=== PATIENT | female | born 1950 | race Caucasian/White ===

== ENCOUNTER 2016-10-17 16:44 | Observation (INO) | payer MEDICARE, OTHER ==
[~2016-10-17] VITALS: Ht 149.9 cm; Wt 63.6 kg
[~2016-10-17 16:44] MED LIST: ACET500C5 PO; ALBU8.5H3 INH; ASPI-535; AZIT250T94 PO; BACTDS PO; BENA20TA48 PO; D-ME473S18 PO; HUM100VI14 SC; HYDR-3720 PO; LANS30CA47 PO; MECL25TA2 PO; METF1000 PO; OMEP20CA16 PO; ONDA4TAB8 PO; PANT40TA3 PO; SIMV20TA PO
[2016-10-17] MEDS ORDERED: NITROGLYCERIN 2% 1 GM OINT PKT TD STA (16:48)
[2016-10-17 16:58] VITALS: Ht 149.9 cm; Wt 63.6 kg
[2016-10-17] MEDS ORDERED: NITROGLYCERIN (SL) 0.4 MG TAB SL PRN ×2 (17:00→18:30)
[2016-10-17 17:19] LABS: HEMOGLOBIN 12.3 g/dl (12.0-16.0); INR 1.04; MEAN CORPUSCULAR HEMOGLOBIN 26.5 pg (29.0-33.0); MEAN CORPUSCULAR VOLUME 77.9 fl (82.0-101.0); MEAN PLATELET VOLUME 9.9 fl (7.4-10.4); PARTIAL THROMBOPLASTIN TIME 27.7 Sec (25.0-35.0); PLATELET COUNT 179 10^3/UL (140-440); PROTIME 13.6 Sec (12.2-14.2); PT RATIO 1.1; RED BLOOD COUNT 4.63 10^6/ul (4.20-5.40); RED CELL DISTRIBUTION WIDTH 15.8 % (11.5-14.5)
[2016-10-17 17:25] LABS: CONDITION 1; LH ANALYZER COMMENTS 1
--- NOTE | 2016-10-17 17:30 | RADRPT ---
PROCEDURE: XR Chest. CLINICAL INDICATION: Chest pain TECHNIQUE: Single frontal view of the chest was obtained. COMPARISON: 07/26/2016 FINDINGS: The heart is within normal limits. The thoracic aorta is calcified. There are mild ill-defined patchy nodular opacities in the right upper lobe with prominence of the r ight hilum. There is no pleural effusion or pneumothorax. RPTAT: AA IMPRESSION: Decreased right upper lobe and right perihilar infiltrate with residual patchy nodular opacities and enlargement of the right hilum. Further evaluation with a CT chest with contrast is recommended. Calcified aorta consistent with atherosclerotic disease. .Ehsan Jansen MD, MD Date Time Electronically viewed and signed by .Ehsan Jansen MD, on 10/17/2016 17:30 .S/
[2016-10-17 17:33] LABS: CHLORIDE 102 mmol/L (97-110); POTASSIUM 3.7 mmol/L (3.5-5.1); SODIUM 143 mmol/L (135-144)
[2016-10-17 17:36] LABS: ANION GAP 15 (8-16); BLOOD UREA NITROGEN 13 mg/dl (7-20); CARBON DIOXIDE 30 mmol/L (21-31); CREATININE 0.59 mg/dl (0.44-1.00); GLUCOSE 98 mg/dl (70-220)
[2016-10-17 17:37] LABS: CALCIUM 9.1 mg/dl (8.4-10.2)
[2016-10-17 17:41] LABS: CREATINE KINASE 58 IU/L (23-200)
[2016-10-17] MEDS ORDERED: GLYB5TAB3 PO (17:42)
[2016-10-17] MEDS ORDERED: METO50TA16 PO (17:43)
[2016-10-17] MEDS ORDERED: LOSA50TA6 PO (17:43)
[2016-10-17] MEDS ORDERED: ASPI-664 PO (17:45)
[2016-10-17 17:47] LABS: CK-MB 0.56 ng/ml (0.0-2.4)
[2016-10-17 17:55] LABS: TROPONIN-I < 0.012 ng/ml (0.00-0.12)
[2016-10-17 17:56] LABS: TROPONIN-I < 0.012 ng/ml (0.00-0.12)
[2016-10-17] MEDS ORDERED: NACL 0.9% 3 ML SYG IV SCH (18:30)
[2016-10-17] MEDS ORDERED: hydrALAzine 20 MG INJ IV PRN (18:30)
[2016-10-17] MEDS ORDERED: LORAZEPAM 2 MG INJ IV PRN (18:30)
[2016-10-17] MEDS ORDERED: MAGNESIUM HYDROXIDE 30ML CUP PO PRN (18:30)
[2016-10-17] MEDS ORDERED: morphine 2 MG INJ IV PRN (18:30)
[2016-10-17] MEDS ORDERED: ONDANSETRON 4 MG INJ IV PRN ×2 (18:30)
[2016-10-17] MEDS ORDERED: ALBUTEROL/IPRATROPIUM (NEB) 3 ML AMP HHN PRN (18:30)
[2016-10-17] MEDS ORDERED: DOCUSATE SODIUM 100 MG CAP PO PRN (18:30)
[2016-10-17] MEDS ORDERED: NA PHOSPHATE/BIPHOS 133 ML ENEMA PR PRN (18:30)
[2016-10-17] MEDS ORDERED: HYDROCODONE/APAP (5/325) TAB PO PRN (18:30)
[2016-10-17] MEDS ORDERED: ACETAMINOPHEN 325 MG TAB PO PRN (18:30)
[2016-10-17 18:42] LABS: BASOPHIL # 0.1 10^3/ul (0.0-0.1); EOSINOPHILS # 1.2 10^3/ul (0.0-0.5); LYMPHOCYTES # 3.4 10^3/ul (0.8-2.9); MONOCYTE # 0.4 10^3/ul (0.3-0.9); NEUTROPHIL # 5.8 10^3/ul (1.6-7.5)
--- NOTE | 2016-10-17 19:00 | ERD ---
ER Documentation Chief Complaint Date/Time DATE: 10/17/16 TIME: 18:58 Chief Complaint Chest pain HPI Patient is a 58-year-old female with hypertension and diabetes who presents with chest pain. She was brought in by ambulance. 1 hour prior she felt dizzy and could not walk and was having left-sided chest pain. The chest pain radiated across her chest to the right side. She said the pain was constant. She still feels the pain although it is better after aspirin and nitroglycerin that was given by the paramedics. Upon review of old medical record she does have multiple visits to the ER for various complaints. ROS All systems reviewed and are negative except as per history of present illness. Medications Home Meds Reported Medications Aspirin* (Aspirin* EC) 81 Mg Tablet.dr, 81 MG PO DAILY, TAB 10/17/16 Losartan Potassium* (Losartan Potassium*) 50 Mg Tablet, 50 MG PO DAILY, TAB 10/17/16 Metoprolol Succinate* (Toprol XL*) 50 Mg Tab.er.24h, 50 MG PO DAILY, #30 TAB 10/17/16 Glyburide* (Glyburide*) 5 Mg Tablet, 5 MG PO WITH BREAKFAST DINNE, #60 TAB 10/17/16 Insulin Human Isophan/Regular (Novolin 70/30) 100 Units/Ml Susp, 45 UNIT SC BID , EA 25 UNITS QAM AND 20 UNITS QPM 08/15/15 Omeprazole* (Omeprazole*) 20 Mg Capsule.dr, 20 MG PO DAILY, CAP 10/16/14 Metformin Hcl* (Metformin Hcl*) 1,000 Mg Tablet, 1000 MG PO BID WITH MEALS, TAB 10/16/14 Discontinued Reported Medications Simvastatin* (Zocor*) 20 Mg Tablet, 20 MG PO QHS, #30 TAB 08/15/15 Benazepril Hcl* (Benazepril Hcl*) 20 Mg Tablet, 20 MG PO DAILY, TAB 08/15/15 Aspirin Ec (Aspir 81) 81 Mg Tablet.dr, 81 MG DAILY 05/11/10 Discontinued Scripts Ondansetron Hcl* (Zofran*) 4 Mg Tablet, 4 MG PO Q8H Y for NAUSEA AND/OR VOMITING , #12 TAB Prov:ADRIANA STEELE DO 07/26/16 Azithromycin* (Zithromax*) 250 Mg Tablet, 250 MG PO .FRIDA DIRECTED, #6 TAB TAKE 500 MG (2 TABS) THE FIRST DAY THEN 250 MG (1 TAB) DAYS 2-5 Prov:ADRIANA STEELE DO 07/26/16 Ondansetron Hcl* (Zofran*) 4 Mg Tablet, 4 MG PO Q8H Y for NAUSEA AND/OR VOMITING , #12 TAB Prov:IVETTEADRIANA DO 06/22/16 Sulfamethoxazole-Trimethoprim* (Bactrim* DS) 800-160 Mg Tab, 1 TAB PO BID for 14 Days, TAB Prov:IVETTEADRIANA DO 06/22/16 Azithromycin* (Zithromax*) 250 Mg Tablet, 250 MG PO .ZPACK DIRECTED, #6 TAB TAKE 500 MG (2 TABS) THE FIRST DAY THEN 250 MG (1 TAB) DAYS 2-5 Prov:BHAVIK RICE MD 04/28/16 Dextromethorphan Hb-Promethazine Hcl (Promethazine DM Syrup) 473 Ml Syrup, 5 ML PO Q6H Y for COUGH, #4 OZ Prov:BHAVIK RICE MD 04/28/16 Acetaminophen* (Tylophen*) 500 Mg Capsule, 1 CAP PO Q6H Y for PAIN AND OR ELEVATED TEMP, #16 CAP Prov:BHAVIK RICE MD 04/28/16 Pantoprazole* (Protonix*) 40 Mg Tablet., 40 MG PO DAILY, #20 TAB Prov:BIRD JOHNSON MD 03/05/16 Hydrocodone Bit-Acetaminophen* (Shelburn*) 7.5-325 Tablet, 1 TAB PO Q4H Y for PAIN , #14 TAB Prov:KATIE CARRILLO DO 03/01/16 Meclizine Hcl* (Antivert*) 25 Mg Tablet, 25 MG PO Q6H Y for DIZZINESS, #20 TAB Prov:KATIE CARRILLO DO 03/01/16 Albuterol Sulfate* (Proair HFA*) 8.5 Gm Hfa.aer.ad, 2 PUFF INH Q4, #1 INHALER Prov:BLAKE SUERO PA-C 01/29/16 Lansoprazole* (Prevacid*) 30 Mg Capsule., 30 MG PO DAILY, #20 Prov:KISHORE XIONG MD 10/06/15 Allergies Allergies: Coded Allergies: morphine (Verified Allergy, Unknown, 10/17/16) n/v codeine (Verified Adverse Reaction, Mild, vomiting, 10/17/16) PMhx/Soc History of Surgery: Yes (C-SECTIONX2, RIGHT SHOULDER) Anesthesia Reaction: No Hx Neurological Disorder: No Hx Respiratory Disorders: No Hx Cardiac Disorders: Yes (HTN) Hx Psychiatric Problems: No Hx Miscellaneous Medical Probl: Yes (DM) Hx Alcohol Use: No Hx Substance Use: No Hx Tobacco Use: No Smoking Status: Never smoker FmHx Family History: No coronary disease Physical Exam Vitals Vital Signs Date Time Temp Pulse Resp B/P Pulse Ox O2 Delivery O2 Flow Rate FiO2 10/17/16 17:05 Nasal Cannula 2 10/17/16 17:05 98.1 70 16 173/71 98 Nasal Cannula 2.0 10/17/16 16:58 98.1 70 18 173/71 Physical Exam Const: Anxious Head: Atraumatic Eyes: Normal Conjunctiva ENT: Normal External Ears, Nose and Mouth. Neck: Full range of motion..~ No meningismus. Resp: Clear to auscultation bilaterally Cardio: Regular rate and rhythm, no murmurs Abd: Soft, non tender, non distended. Normal bowel sounds Skin: No petechiae or rashes Back: No midline or flank tenderness Ext: No cyanosis, or edema Neur: Awake and alert Psych: Normal Mood and Affect Result Diagram: 10/17/16 1650 10/17/16 1650 Results 24 hrs Laboratory Tests Test 10/17/16 16:50 Activated Partial Thromboplast Time 27.7Sec Anion Gap 15 Basophils # 0.110^3/ul Basophils % 1.0% Blood Morphology Comment Blood Urea Nitrogen 13mg/dl Calcium Level 9.1mg/dl Carbon Dioxide Level 30mmol/L Chloride Level 102mmol/L Creatine Kinase 58IU/L Creatine Kinase Index 1.0 Creatinine 0.59mg/dl Creatinine Kinase MB (Mass) 0.56ng/ml Eosinophils # 1.210^3/ul Eosinophils % 11.0% Glucose Level 98mg/dl Hematocrit 36.0% Hemoglobin 12.3g/dl INR International Normalized Ratio 1.04 Lymphocytes # 3.410^3/ul Lymphocytes % 31.0% Mean Corpuscular Hemoglobin 26.5pg Mean Corpuscular Hemoglobin Concent 34.0g/dl Mean Corpuscular Volume 77.9fl Mean Platelet Volume 9.9fl Monocytes # 0.410^3/ul Monocytes % 4.0% Neutrophils # 5.810^3/ul Neutrophils % 53.0% Nucleated Red Blood Cells # 10^3/ul Nucleated Red Blood Cells % /100WBC Platelet Count 73538^3/UL Potassium Level 3.7mmol/L Prothrombin Time 13.6Sec Prothrombin Time Ratio 1.1 Red Blood Count 4.6310^6/ul Red Cell Distribution Width 15.8% Sodium Level 143mmol/L Troponin I < 0.012ng/ml White Blood Count 11.010^3/ul Current Medications Medications (Trade) Dose Ordered Sig/Cuca Route PRN Reason Start Time Stop Time Status Last Admin Dose Admin Nitroglycerin (Nitroglycerin 2% Oint) 1 inch ONCE STAT TD 10/17/16 16:48 10/17/16 16:50 DC 10/17/16 17:17 Nitroglycerin (Nitroglycerin (Sl Tab) 0.4 Mg) 1 tab Q5M UP TO 3 DOSES PRN SL CHEST PAIN 10/17/16 17:00 Ondansetron HCl (Zofran Inj) 4 mg ER BRIDGE PRN IV NAUSEA AND/OR VOMITING 10/17/16 18:30 10/18/16 18:29 Acetaminophen (Tylenol Tab) 650 mg ER BRIDGE PRN PO MILD PAIN/FEVER 10/17/16 18:30 10/18/16 18:29 IV Flush (NS 3 ml) 3 ml PER PROTOCOL IV 10/17/16 18:30 UNV Ondansetron HCl (Zofran Inj) 4 mg Q6H PRN IV NAUSEA AND/OR VOMITING 10/17/16 18:30 UNV Acetaminophen (Tylenol Tab) 650 mg Q6H PRN PO PAIN LEVEL 1-3 OR FEVER 10/17/16 18:30 UNV Acetaminophen/ Hydrocodone Bitart (Shelburn (5/325)) 1 tab Q6H PRN PO MODERATE PAIN LEVEL 4-6 10/17/16 18:30 UNV Morphine Sulfate (morphine) 2 mg Q4H PRN IV SEVERE PAIN LEVEL 7-10 10/17/16 18:30 UNV Docusate Sodium (Colace) 100 mg Q12H PRN PO CONSTIPATION 10/17/16 18:30 UNV Magnesium Hydroxide (Milk Of Mag) 30 ml DAILY PRN PO CONSTIPATION 10/17/16 18:30 UNV Sodium Biphosphate/ Sodium Phosphate (Fleet Enema) 133 ml DAILY PRN [place] CONSTIPATION 10/17/16 18:30 UNV Pantoprazole (Protonix Iv) 40 mg DAILY@06 IV 10/18/16 06:00 UNV Heparin Sodium (Porcine) 5000 unit 5,000 unit Q12 SC 10/17/16 21:00 UNV Sodium Chloride (1/2 NS) 1,000 ml @ 75 mls/hr [id number] IV 10/17/16 18:21 UNV Lorazepam (Ativan) 0.5 mg Q6H PRN IV ANXIETY 10/17/16 18:30 UNV Albuterol/ Ipratropium (Duoneb) 3 ml Q4H RESP THERAPY PRN HHN SHORTNESS OF BREATH 10/17/16 18:30 UNV Hydralazine HCl (Apresoline) 10 mg Q6H PRN IV ELEVATED BLOOD PRESSURE 10/17/16 18:30 UNV Clonidine (Catapres) 0.1 mg Q6H PRN PO ELEVATED BLOOD PRESSURE 10/17/16 18:30 UNV Nitroglycerin (Nitroglycerin (Sl Tab) 0.4 Mg) 1 tab Q5M PRN SL ANGINA 10/17/16 18:30 UNV Aspirin (Ecotrin) 325 mg DAILY PO 10/18/16 09:00 UNV Insulin Aspart (Novolog Insulin Pen) NOVOLOG *MODERATE* ALGORI... Q4 SC 10/17/16 21:00 UNV Miscellaneous Information (* Miscellaneous Pharmacy Order) HYPOGLYCEMIA PROTOCOL w... ONCE ONCE XX 10/17/16 18:30 10/17/16 18:31 UNV Miscellaneous Information (* Miscellaneous Pharmacy Order) Discontinue Glyburide, Glipizide,... ONCE ONCE XX 10/17/16 18:30 10/17/16 18:31 UNV Miscellaneous Information (* Miscellaneous Pharmacy Order) Discontinue all previ... ONCE ONCE XX 10/17/16 18:30 10/17/16 18:31 UNV Losartan Potassium (Cozaar) 50 mg DAILY PO 10/18/16 09:00 UNV Metoprolol Succinate (Toprol Xl) 50 mg DAILY PO 10/18/16 09:00 UNV Procedures/MDM EKG #1 read by me: Rate/Rhythm: Regular rate and rhythm at a rate of 70 Intervals: Normal Impression: No evidence of ischemia or arrhythmia EKG #2 is pending at this time. PROCEDURE: XR Chest. CLINICAL INDICATION: Chest pain TECHNIQUE: Single frontal view of the chest was obtained. COMPARISON: 07/26/2016 FINDINGS: The heart is within normal limits. The thoracic aorta is calcified. There are mild ill-defined patchy nodular opacities in the right upper lobe with prominence of the right hilum. There is no pleural effusion or pneumothorax. RPTAT: AA IMPRESSION: Decreased right upper lobe and right perihilar infiltrate with residual patchy nodular opacities and enlargement of the right hilum. Further evaluation with a CT chest with contrast is recommended. Calcified aorta consistent with atherosclerotic disease. .Ehsan Jansen MD, MD Date Time Electronically viewed and signed by .Ehsan Jansen MD, MD on 10/17/2016 17: 30 Patient is a 66-year-old female with hypertension and diabetes who presents with chest pain. Given her age and cardiac risk factors I am concerned about potential acute coronary syndrome. At this point I doubt pneumonia, pneumothorax, pulmonary embolism, or aortic dissection. The patient will need admission for cardiac workup. I spoke with Dr. Hudson who will admit the patient to a telemetry bed. Departure Diagnosis: Primary Impression: Chest pain Chest pain type: unspecified Qualified Code: R07.9 - Chest pain, unspecified type Condition: YSOI Espinoza MD Oct 17, 2016 19:00
[2016-10-17] MEDS ORDERED: GLUCOSE GEL 15 GRAM TUBE PO PRN ×2 (19:30)
[2016-10-17] MEDS ORDERED: GLUCAGON 1 MG INJ IM PRN (19:30)
[2016-10-17] MEDS ORDERED: GLUCOSE GEL 15 GRAM TUBE BUCCAL PRN (19:30)
[2016-10-17] MEDS ORDERED: DEXTROSE 50% 50 ML SYRINGE IV PRN ×2 (19:30)
[2016-10-17] MEDS ORDERED: LEVOFLOXACIN 750MG/D5W (PMX) 150 ML IVPB SCH (19:30)
[2016-10-17] MEDS: SOD CHLORIDE 0.45% 1,000 ML IV SCH (19:44)
[2016-10-17] MEDS ORDERED: IOHEXOL 300MG/ML 150 ML BTL ONE (21:00)
[2016-10-17] MEDS ORDERED: SOD CHLORIDE 0.9% 100 ML ONE (21:00)
[2016-10-17] MEDS: INSULIN ASPART [NOVOLOG] 3 ML PEN SC SCH (21:00)
[2016-10-17] MEDS: ACETAMINOPHEN 325 MG TAB PO PRN (21:25)
[2016-10-17] MEDS: HEPARIN 5,000 UNIT/0.5 ML SYG SC SCH (21:27)
--- NOTE | 2016-10-17 21:29 | RADRPT ---
PROCEDURE: CT Chest with contrast. CLINICAL INDICATION: Shortness of breath, abnormal chest x-ray TECHNIQUE: A CT scan of the chest with contrast was performed. Coronal and sagittal reformatted im ages were obtained from the axial source images. 100 cc Omnipaque 300 were administered during exami nation without complication. CTDIvol: 11.95 mGy. Exam DLP: 409.68 mGy-cm. COMPARISON: Chest x-ray dated 10/17/2016. FINDINGS: There is a 1.0 cm partially calcified left thyroid lesion. There are also hypodense lesions in the right thyroid lobe measuring up to 0.7 cm. The trachea and mainstem bronchi are patent. The heart i s not enlarged. There is no pericardial effusion. There are numerous nodular opacities throughout the right upper lobe, with increased confluence in t he perihilar region. There is also a 2.6 x 2.0 cm right hilar lymph node. Several prominent right paratracheal lymph nodes measure up to 11 0 cm short axis. Mild atelectatic changes are noted in the medial right lower lobe, adjacent to the thoracic spine os teophytes. The left lung is clear. No pleural effusion or pneumothorax is identified. There is a 1.1 cm left renal cyst. There is no suspicious osseous lesion. IMPRESSION: 1. Numerous nodular opacities throughout the right upper lobe, with increased confluence in the per ihilar region. This is nonspecific but could represent an infectious or neoplastic process. 2. Right hilar and right paratracheal lymphadenopathy, also nonspecific. RPTAT: HTAR .Sb Mulligan MD, MD Date Time Electronically viewed and signed by .Sb Mulligan MD, on 10/17/2016 21:28 .R/
[2016-10-17 21:38] LABS: CREATINE KINASE 49 IU/L (23-200)
[2016-10-17 21:48] LABS: CK-MB 0.39 ng/ml (0.0-2.4)
[2016-10-17 21:55] LABS: TROPONIN-I < 0.012 ng/ml (0.00-0.12)
[2016-10-17 22:36] LABS: ADD UMIC YES; URINE BILIRUBIN (Dip) NEGATIVE (NEGATIVE); URINE BLOOD (Dip) NEGATIVE (NEGATIVE); URINE COLOR LT. YELLOW (YELLOW); URINE GLUCOSE (Dip) NEGATIVE (NEGATIVE); URINE KETONES (Dip) NEGATIVE (NEGATIVE); URINE LEUKOCYTE ESTERASE (Dip) TRACE (NEGATIVE); URINE NITRITE (Dip) NEGATIVE (NEGATIVE); URINE TOTAL PROTEIN (Dip) NEGATIVE (NEGATIVE); URINE UROBILINOGEN (Dip) 0.2 E.U./dL (0.1-1.0)
[2016-10-17 22:43] LABS: BACTERIA,URINE FEW; SQUAMOUS EPITHELIAL CELL,UR RARE; URINE RBCS 0-2 /HPF (0)
[2016-10-18] VITALS (10 sets, daily range): BP systolic 122–192; BP diastolic 60–88; PULSE 62–69; RESP 15–20; TEMP 97.9
[2016-10-18] MEDS: INSULIN ASPART [NOVOLOG] 3 ML PEN SC SCH ×5 (00:44→17:30)
[2016-10-18 01:02] LABS: CREATINE KINASE 48 IU/L (23-200)
[2016-10-18 01:11] LABS: CK-MB 0.41 ng/ml (0.0-2.4)
[2016-10-18 01:17] LABS: TROPONIN-I < 0.012 ng/ml (0.00-0.12)
[2016-10-18] MEDS: ACETAMINOPHEN 325 MG TAB PO PRN (04:30)
[2016-10-18] MEDS ORDERED: PANTOPRAZOLE 40 MG INJ IV SCH (06:00)
--- NOTE | 2016-10-18 06:46 | HP ---
DATE OF ADMISSION: 10/17/2016 IDENTIFICATION: This is a 66-year-old female. CHIEF COMPLAINT: Chest pain. HISTORY OF PRESENT ILLNESS: A 66-year-old female with past medical history of type 2 diabetes, hype rtension, high cholesterol, who is presenting with chest pain symptoms that began for 1 day. She al so had some headache symptoms and dizziness symptoms, but no loss of consciousness. Had some nausea symptoms as well, but no vomiting. She has been taking her medicines regularly at home, but became concerned and called EMS. Chest pain did radiate to her right side as well, it was constant in mora ure. In the ambulance, she did get aspirin and nitroglycerin, which helped relieve her symptoms as well. When she came in, she also was found with elevated blood pressure, systolic in the 170s and s he was given blood pressure medicines in the ER. PAST MEDICAL HISTORY: As stated above. ALLERGIES: 1. CODEINE. 2. MORPHINE. HOME MEDICATION: 1. Losartan 50 mg daily. 2. Toprol-XL 50 mg daily. 3. Aspirin 81 mg daily. 4. Omeprazole 20 mg daily. 5. Glyburide 5 mg at breakfast and dinner. 6. Novolin 70/30 insulin 45 units b.i.d. and 25 units in the morning and 20 units at night. 7. Metformin 1000 mg b.i.d. PAST SURGICAL HISTORY: She had x2 in the past. She has had right shoulder surgery in the past and a tubal ligation in the past. SOCIAL HISTORY: Negative for smoking, drinking, or IV drug abuse. FAMILY HISTORY: Mother had diabetes. PHYSICAL EXAMINATION VITAL SIGNS: Today, her vital signs were T-max 98.1, pulse 70, respirations 16 to 18, blood pressur e 173/71, saturating at 98% on 2 liters nasal cannula. GENERAL: The patient is lying in bed, answering questions, in no acute distress. HEENT: Pupils equal, round, react to light. Extraocular muscles intact. NECK: Supple, no thyromegaly. LUNGS: Clear to auscultation bilaterally. CARDIOVASCULAR: S1, S2 heard. No rubs or gallops. ABDOMEN: Soft, nontender, nondistended. Normal bowel sounds. No rebound or guarding. MUSCULOSKELETAL: No lower extremity edema bilaterally. NEUROLOGIC: No focal deficits. LABORATORIES: WBC 11.0, hemoglobin 12.3, hematocrit 36.0, platelets 139. The basic metabolic panel is normal. Troponin is negative x2. Coags are normal. Chest x-ray shows decreased right upper lo be and right perihilar infiltrate with residual patchy nodular opacities, enlargement of the right h ilum, recommending CT scan with contrast for further evaluation. ASSESSMENT AND PLAN: This is a 66-year-old female coming in with chest pain symptoms and dizziness with signs of hypertensive urgency and abnormal chest x-rays. 1. Chest pain, rule out for acute coronary syndrome. Admit her to telemetry floor, put her on aspi rin, morphine, oxygen, and nitrates. Trend her troponins, continue her home blood pressure medicine s for now. Check a 2D echocardiogram as well. 2. Hypertensive urgency, improved. Continue hydralazine IV p.r.n. and clonidine p.r.n. 3. Type 2 diabetes, check A1c and put her on sliding scale insulin for now. 4. High cholesterol. Check a lipid panel. 5. Essential hypertension. Again, see #2. We will continue her blood pressure medicines. 6. Abnormal chest x-ray. We will get a CT chest with contrast and put her on IV antibiotics for no w. No fevers. 7. GI prophylaxis. She will be on PPI. 8. DVT prophylaxis. She will be on heparin, get a PT consult. Dictated By: KYE BAL/DAINA Conf#: [id number] DID#: [id number]
[2016-10-18] MEDS: SOD CHLORIDE 0.45% 1,000 ML IV SCH (07:41)
[2016-10-18 08:20] LABS: CHOL/HDL RATIO 4.4 RATIO; CK-MB 0.29 ng/ml (0.0-2.4)
[2016-10-18 08:28] LABS: CREATINE KINASE 35 IU/L (23-200); TROPONIN-I < 0.012 ng/ml (0.00-0.12)
[2016-10-18 08:39] LABS: THYROID STIMULATING HORMONE 3.51 MIU/L (0.465-4.680)
[2016-10-18] MEDS ORDERED: LOSARTAN 50 MG TAB PO SCH (09:00)
[2016-10-18] MEDS ORDERED: ASPIRIN (EC) 325 MG TAB PO SCH (09:00)
[2016-10-18] MEDS ORDERED: METOPROLOL (XL) 50 MG TAB PO SCH (09:00)
[2016-10-18] MEDS: HEPARIN 5,000 UNIT/0.5 ML SYG SC SCH (09:04)
[2016-10-18 09:09] LABS: BASOPHILS % 0.3 % (0.0-2.0); EOSINOPHILS # 0.4 10^3/ul (0.0-0.5); EOSINOPHILS % 4.6 % (0.0-7.0); HEMATOCRIT 32.6 % (37.0-47.0); HEMOGLOBIN 10.9 g/dl (12.0-16.0); LYMPHOCYTES # 1.9 10^3/ul (0.8-2.9); LYMPHOCYTES % 24.5 % (15.0-51.0); MEAN CORPUSCULAR HEMOGLOBIN 26.7 pg (29.0-33.0); MEAN CORPUSCULAR HGB CONC 33.5 g/dl (32.0-37.0); MEAN CORPUSCULAR VOLUME 79.7 fl (82.0-101.0); MEAN PLATELET VOLUME 10.4 fl (7.4-10.4); MONOCYTE # 0.4 10^3/ul (0.3-0.9); MONOCYTES % 5.3 % (0.0-11.0); NEUTROPHIL # 5.2 10^3/ul (1.6-7.5); NEUTROPHILS % 65.3 % (39.0-77.0); PLATELET COUNT 147 10^3/UL (140-440); RED BLOOD COUNT 4.09 10^6/ul (4.20-5.40); RED CELL DISTRIBUTION WIDTH 15.5 % (11.5-14.5); UNCORRECTED WBC 7.9 10^3/ul (4.8-10.8); WHITE BLOOD COUNT 7.9 10^3/ul (4.8-10.8)
[2016-10-18 09:16] LABS: CONDITION 1; LH ANALYZER COMMENTS 1
[2016-10-18 09:20] LABS: POTASSIUM 4.5 mmol/L (3.5-5.1)
[2016-10-18 09:23] LABS: CREATININE 0.63 mg/dl (0.44-1.00)
[2016-10-18 09:24] LABS: CALCIUM 8.6 mg/dl (8.4-10.2); MAGNESIUM 1.8 mg/dl (1.7-2.5); PHOSPHORUS 3.8 mg/dl (2.5-4.9)
[2016-10-18] MEDS ORDERED: HUMULIN 70/30 3ML VIAL SC SCH (09:30)
[2016-10-18] MEDS ORDERED: INSULIN ASP PROT/ASPART (70/30) PEN SC SCH (12:00)
--- NOTE | 2016-10-18 12:38 | RADRPT ---
Echocardiogram Report Patient Name: BEREKET FOURNIER Gender: Female Date: 1950 Study Date: 18-Oct-2016 [employer] Consultant: Fredrick Banks [facility] Location: 5561 Ref. Physician: KYE PAT Quality: Good Procedures: Transthoracic echocardiogram with complete 2D, M-Mode, and doppler examination. Indications: Chest Pain. 2D/M Mode Doppler Measurement Value Normal Ranges Measurement Value Normal Ranges LVIDd 2D 4.9 3.5 - 5.6 cm AV Peak Noel 1.3 m/sec LVIDs 2D 3.1 2.1 - 4.1 cm AV Peak PG 6.7 mmHg LVPWd 2D 0.9 0.6 - 1.1 cm LVOT Peak Noel 0.7 m/sec IVSd 2D 0.8 0.6 - 1.1 cm LVOT Peak PG 1.9 mmHg AoR Diam 2D 2.6 2.0 - 3.7 cm MV E Peak Noel 0.9 m/sec EDV 2D 110.2 cm3 MV A Peak Noel 0.9 m/sec ESV 2D 31.2 cm3 MV E/A 1.0 LA Dimen 2D 3.3 2.3 - 4.0 cm MV Decel Time 242 msec MV Decel [place] 4 MV E/A 1.0 TR Peak Noel 2.6 m/sec TR Peak PG 28.0 mmHg RVSP 31.0 mmHg Findings Left Ventricle: Normal left ventricular systolic function. Normal left ventricular cavity size. Normal left ventricular wall thickness. Ejection fraction is visually estimated at 65 %. Tissue Doppler/Mitral Doppler indices are consistent with impaired relaxation (Stage I diastolic dysfunction). Right Ventricle: Normal right ventricular size. Normal right ventricular systolic function. Left Atrium: There is mild enlargement of left atrium. Right Atrium: The right atrium is normal in size. Mitral Valve: Mild mitral annular calcification. Trace mitral regurgitation. Aortic Valve: Normal appearance of the aortic valve. No significant aortic stenosis or insufficiency. Tricuspid Valve: Normal appearance of the tricuspid valve. Estimated peak PA systolic pressure 30 mmHg. There is mild tricuspid regurgitation. Pulmonic Valve: Normal pulmonic valve appearance. Pericardium: Normal pericardium with no significant pericardial effusion. Aorta: Normal aortic root. IVC: Normal size and normal respiratory collapse consistent with normal right atrial pressure. Conclusions Normal left ventricular systolic function. Normal left ventricular cavity size. Normal left ventricular wall thickness. Ejection fraction is visually estimated at 65 %. Tissue Doppler/Mitral Doppler indices are consistent with impaired relaxation (Stage I diastolic dysfunction). No significant valvular stenosis or regurgitation seen. Estimated peak PA systolic pressure 30 mmHg based on RA pressure of 3 mmHg. Electronically Signed By: Doug Sanz 18-Oct-2016 12:37:33 -0800 Patient Name: BEREKET FOURNIER Study Date: 18-Oct-[id number]
--- NOTE | 2016-10-18 14:02 | PDOCDIS ---
Discharge Instructions CONDITION Patient Condition: Stable HOME CARE INSTRUCTIONS: Special Diet: Cardiac diet ACTIVITY: Activity Restrictions: Slowly Increase Activity FOLLOW UP/APPOINTMENTS Appointments Please take your medicatins as prescribed, and see your doctor in the clinic in 1 week. KYE PAT Oct 18, 2016 14:02
[2016-10-18] MEDS ORDERED: LEVO750T25 PO (14:04)
--- NOTE | 2016-10-18 14:38 | DS ---
DATE OF ADMISSION: 10/17/2016 DATE OF DISCHARGE: 10/18/2016 This is a 66-year-old female originally admitted on 10/17/2014 being discharged on 10/18/2016. HOSPITAL COURSE: The patient came in with chest pain symptoms. She was admitted to telemetry floor . She ruled out for acute coronary syndrome. Troponins were negative x3. She had no significant E KG changes. Over the course of her hospital stay, chest pain symptoms improved. She was able to am bulate and tolerate a p.o. diet. She did work with physical therapy who recommended home health PT and front-wheel walker. In the meantime, her UA was found to be positive for UTI, specifically grea ter than 100,000 group B strep. Her white blood cell count did improve after getting antibiotics ann. Her hemoglobin A1c was found to be 10.8 and she was put on moderate insulin sliding scale re gimen. Her sugars did improve. She is again able to ambulate and tolerate a p.o. diet. She had no more chest pain symptoms. She will be discharged home today in improved condition. She will be sent with: 1. Levaquin 750 mg p.o. daily for 7 days. 2. She will continue aspirin 81 mg daily. 3. Glyburide 5 mg at breakfast and dinner. 4. Novolin 70/30 insulin 45 units b.i.d. 5. Losartan 50 mg b.i.d. 6. Metformin 1000 mg b.i.d. with meals. 7. Toprol-XL 50 mg daily. 8. Omeprazole 20 mg daily. She will need to follow up with primary care doctor in the clinic in the next 1 to 2 weeks. FINAL DIAGNOSES: 1. Chest pain, ruled out for acute coronary syndrome. 2. Essential hypertension. 3. Hypertensive urgency, improved. 4. High cholesterol. 5. 6. Type 2 diabetes with A1c of 10.8 now on p.o. and insulin medicines for diabetic control. 7. Positive group B strep urinary tract infection, now on antibiotic treatment. Time spent discharging patient 40 minutes. Dictated By: KYE BAL/DAINA Conf#: [id number] DID#: [id number]
== END 2016-10-18 20:29 | disposition home or self-care (01) ==
LOC: E/R 16:44 → MS4 18:06 → INTOOBSV 18:06
PROVIDERS: ADMIT Hospitalist; ATTEND Hospitalist
DX: R07.9 Chest pain, unspecified (principal); I16.0 Hypertensive urgency; E11.9 Type 2 diabetes mellitus without complications; E78.00 Pure hypercholesterolemia, unspecified; N39.0 Urinary tract infection, site not specified; B95.1 Streptococcus, group B, as the cause of diseases classified elsewhere; Z79.82 Long term (current) use of aspirin; Z79.4 Long term (current) use of insulin; Z88.5 Allergy status to narcotic agent; Z98.51 Tubal ligation status
CPT/HCPCS: 36415; 71010; 71260; 80048; 80061; 81001; 82550; 82553; 82962; 83036; 83735; 84100; 84439; 84443; 84484; 85025; 85610; 85730; 87086; 87400; 93005; 93306; 96365; 96366; 96372; 96375; 97162; 99285; C9113; G0378; J1644; J1815; J1817; J1956; J2405; Q9967; 81003

== ENCOUNTER 2016-12-02 01:41 | Inpatient (IN) | payer OTHER, MEDICARE ==
[2016-12-02] VITALS (13 sets, daily range): BP systolic 135–176; BP diastolic 63–79; PULSE 71–87; RESP 18–20; TEMP 98.3; Ht 134.6 cm; Wt 63.8 kg
[~2016-12-02] VITALS: Ht 134.6 cm; Wt 63.8 kg
[~2016-12-02 01:41] MED LIST changes: -ACET500C5 PO; -ALBU8.5H3 INH; -ASPI-535; +ASPI-664 PO; -AZIT250T94 PO; -BACTDS PO; -BENA20TA48 PO; -D-ME473S18 PO; +GLYB5TAB3 PO; -HYDR-3720 PO; -LANS30CA47 PO; +LEVO750T25 PO; +LOSA50TA6 PO; -MECL25TA2 PO; +METO50TA16 PO; -ONDA4TAB8 PO; -PANT40TA3 PO; -SIMV20TA PO
[2016-12-02] MEDS ORDERED: SOD CHLORIDE 0.9% 500 ML IV STA (01:48)
[2016-12-02] MEDS ORDERED: ONDANSETRON 4 MG INJ IV STA ×2 (01:48→03:25)
[2016-12-02 02:29] LABS: ADD SCAN DIFF NO
[2016-12-02 02:36] LABS: BASOPHILS % 0.3 % (0.0-2.0); EOSINOPHILS # 0.5 10^3/ul (0.0-0.5); EOSINOPHILS % 4.4 % (0.0-7.0); HEMATOCRIT 40.9 % (37.0-47.0); LYMPHOCYTES # 2.6 10^3/ul (0.8-2.9); MEAN CORPUSCULAR HEMOGLOBIN 26.2 pg (29.0-33.0); MEAN CORPUSCULAR HGB CONC 34.2 g/dl (32.0-37.0); MEAN CORPUSCULAR VOLUME 76.4 fl (82.0-101.0); MEAN PLATELET VOLUME 11.9 fl (7.4-10.4); MONOCYTE # 0.6 10^3/ul (0.3-0.9); NEUTROPHIL # 8.5 10^3/ul (1.6-7.5); PLATELET COUNT 222 10^3/UL (140-415); RED BLOOD COUNT 5.35 10^6/ul (4.20-5.40); RED CELL DISTRIBUTION WIDTH 13.8 % (11.5-14.5); WHITE BLOOD COUNT 12.3 10^3/ul (4.8-10.8)
[2016-12-02 02:49] LABS: INR 1.01; PARTIAL THROMBOPLASTIN TIME 26.4 Sec (25.0-35.0); PROTIME 13.3 Sec (12.2-14.2)
[2016-12-02 02:51] LABS: ALBUMIN 4.4 g/dl (3.3-4.9)
[2016-12-02 02:52] LABS: CHLORIDE 87 mmol/L (97-110); POTASSIUM 4.3 mmol/L (3.5-5.1); SODIUM 140 mmol/L (135-144)
[2016-12-02 02:54] LABS: ALBUMIN/GLOBULIN RATIO 1.12; ANION GAP 19 (8-16); ASPARTATE AMINO TRANSFERASE 43 IU/L (15-46); BILIRUBIN,INDIRECT 0.5 mg/dl (0-1.1); BILIRUBIN,TOTAL 0.5 mg/dl (0.2-1.3); CARBON DIOXIDE 38 mmol/L (21-31); CREATININE 0.68 mg/dl (0.44-1.00); TOTAL PROTEIN 8.3 g/dl (6.1-8.1)
[2016-12-02 02:55] LABS: ALANINE AMINOTRANSFERASE 39 IU/L (13-69); ALKALINE PHOSPHATASE 224 IU/L (42-121); BLOOD UREA NITROGEN 19 mg/dl (7-20); CALCIUM 10.3 mg/dl (8.4-10.2)
[2016-12-02 03:03] LABS: GLUCOSE 548 mg/dl (70-220)
[2016-12-02 03:06] LABS: TROPONIN-I < 0.012 ng/ml (0.00-0.12)
--- NOTE | 2016-12-02 03:07 | RADRPT ---
PROCEDURE: XR Chest. CLINICAL INDICATION: Abdominal pain. TECHNIQUE: Single frontal view of the chest was obtained COMPARISON: Plain film chest and CT chest examination dated 10/17/2016. FINDINGS: Heart size is mildly enlarged. Atherosclerotic calcifications in the thoracic aorta. Right mid derrick g patchy nodular air space disease again seen. This compatible with plain film and CT examinations dated 10/17/2016. There is no pleural effusion or pneumothorax. IMPRESSION: Patchy nodular right mid lung air space disease is again seen. RPTAT: [facility] Physician Shira Date Time Electronically viewed and signed by Physician Shira on 12/02/2016 03:07 RS/
--- NOTE | 2016-12-02 03:18 | RADRPT ---
PROCEDURE: CT Abdomen and Pelvis without contrast. CLINICAL INDICATION: Abdominal pain. TECHNIQUE: A CT scan of the abdomen and pelvis was performed without intravenous contrast. Ceron l and sagittal reformatted images were generated. Images were reviewed on a high-resolution PACS wor kstation. CTDIvol: 15.19 mGy. DLP: 801.16 mGy-cm. One or more of the following dose reduction techniques were used: - Automated exposure control. - Adjustment of the mA and/or kV according to patient size. - Use of iterative reconstruction technique. COMPARISON: 08/15/2015 FINDINGS: There are mild atelectatic changes in the medial right lower lobe, adjacent to the thoracic spine os teophytes. Evaluation of the abdominal and pelvic viscera is limited by the lack of oral and intravenous contra st. The liver is unremarkable. The gallbladder is normal in appearance. The common bile duct is not dila triston. The spleen is not enlarged. No pancreatic lesion is identified and there is no pancreatic ducta l dilatation. The adrenal glands are unremarkable. The kidneys are normal in size. There is no perinephric fat stranding. No hydronephrosis is seen. Th ere is a 5 mm nonobstructing stone in the left kidney. There is a 1.3 cm right renal cyst. There are a few mildly dilated duodenal and jejunal loops in the abdomen and pelvis, and a possible transition to relatively collapsed small bowel in the posterior abdominopelvic region. The small and large bowel are normal in caliber. There is no bowel wall thickening. The appendix is normal. The urinary bladder is unremarkable. The pelvic organs are within normal limits. No lymphadenopathy is identified. There is no ascites. No pneumoperitoneum is seen. There are mild a rterial calcifications. No suspicious osseous lesion is idenitified. IMPRESSION: 1. A few mildly dilated duodenal and jejunal loops in the abdomen and pelvis, with a possible trans ition to relatively collapsed small bowel in the posterior abdominopelvic region. This is nonspecif ic but suggestive of a partial or evolving small bowel obstruction. This could be further evaluated with a small bowel follow-through examination if clinically warranted. 2. Normal appendix. 3. No hydronephrosis. There is a nonobstructing 5 mm stone in the left kidney. 4. Mild atherosclerotic arterial calcifications. RPTAT: HTAR .Sb Mulligan MD, MD Date Time Electronically viewed and signed by .Sb Mulligan MD, MD on 12/02/2016 03:17 .R/
[2016-12-02] MEDS ORDERED: LORAZEPAM 2 MG INJ ONE (03:26)
[2016-12-02] MEDS ORDERED: LORAZEPAM 2 MG INJ IV ONE (03:30)
--- NOTE | 2016-12-02 04:07 | ERA ---
ER Documentation Chief Complaint Date/Time DATE: 12/02/16 TIME: 04:06 Chief Complaint AP w/ upper abd/epigastric distension x 1 hr, vomiting, had chilli @ 1900 HPI This is 58-year-old female with epigastric abdominal. Distention 2-year-old. Patient has vomiting 3-4 episodes of nonbilious nonbloody. He said happened after she had "chilly" for dinner abdominal pain is diffusely located but localized to the epigastric region with associated nausea and vomiting. Pain is mild to moderate in intensity. No other current complaints. ROS All systems reviewed and are negative except as per history of present illness. Medications Home Meds Active Scripts Levofloxacin* (Levaquin*) 750 Mg Tablet, 750 MG PO DAILY for 7 Days, TAB Prov:KYE PAT S. 10/18/16 Reported Medications Aspirin* (Aspirin* EC) 81 Mg Tablet.dr, 81 MG PO DAILY, TAB 10/17/16 Losartan Potassium* (Losartan Potassium*) 50 Mg Tablet, 50 MG PO DAILY, TAB 10/17/16 Metoprolol Succinate* (Toprol XL*) 50 Mg Tab.er.24h, 50 MG PO DAILY, #30 TAB 10/17/16 Glyburide* (Glyburide*) 5 Mg Tablet, 5 MG PO WITH BREAKFAST DINNE, #60 TAB 10/17/16 Insulin Human Isophan/Regular (Novolin 70/30) 100 Units/Ml Susp, 45 UNIT SC BID , EA 25 UNITS QAM AND 20 UNITS QPM 08/15/15 Omeprazole* (Omeprazole*) 20 Mg Capsule.dr, 20 MG PO DAILY, CAP 10/16/14 Metformin Hcl* (Metformin Hcl*) 1,000 Mg Tablet, 1000 MG PO BID WITH MEALS, TAB 10/16/14 Allergies Allergies: Coded Allergies: morphine (Verified Allergy, Unknown, 10/17/16) n/v codeine (Verified Adverse Reaction, Mild, vomiting, 10/17/16) PMhx/Soc History of Surgery: Yes (Right shoulder, x2 C-sections) Anesthesia Reaction: No Hx Neurological Disorder: No Hx Respiratory Disorders: No Hx Cardiac Disorders: Yes (HTN) Hx Psychiatric Problems: No Hx Miscellaneous Medical Probl: Yes (DM, htn, high cholesterol, chest pain, C section, tubal ligation) Hx Alcohol Use: No Hx Substance Use: No Hx Tobacco Use: No Smoking Status: Never smoker Physical Exam Vitals Vital Signs Date Time Temp Pulse Resp B/P Pulse Ox O2 Delivery O2 Flow Rate FiO2 12/02/16 02:13 98.3 78 16 175/74 95 Room Air 12/02/16 01:50 98.8 86 20 179/86 98 Physical Exam Const: [] Head: Atraumatic Eyes: Normal Conjunctiva ENT: Normal External Ears, Nose and Mouth. Neck: Full range of motion..~ No meningismus. Resp: Clear to auscultation bilaterally Cardio: Regular rate and rhythm, no murmurs Abd: Soft, non tender, non distended. Normal bowel sounds Skin: No petechiae or rashes Back: No midline or flank tenderness Ext: No cyanosis, or edema Neur: Awake and alert Psych: Normal Mood and Affect Result Diagram: 12/02/16 0200 12/02/16 0200 Results 24 hrs Laboratory Tests Test 12/02/16 02:00 White Blood Count 12.310^3/ul Red Blood Count 5.3510^6/ul Hemoglobin 14.0g/dl Hematocrit 40.9% Mean Corpuscular Volume 76.4fl Mean Corpuscular Hemoglobin 26.2pg Mean Corpuscular Hemoglobin Concent 34.2g/dl Red Cell Distribution Width 13.8% Platelet Count 50998^3/UL Mean Platelet Volume 11.9fl Neutrophils % 69.0% Lymphocytes % 21.0% Monocytes % 5.0% Eosinophils % 4.4% Basophils % 0.3% Nucleated Red Blood Cells % 0.0/100WBC Neutrophils # 8.510^3/ul Lymphocytes # 2.610^3/ul Monocytes # 0.610^3/ul Eosinophils # 0.510^3/ul Basophils # 0.010^3/ul Nucleated Red Blood Cells # 0.010^3/ul Prothrombin Time 13.3Sec Prothrombin Time Ratio 1.0 INR International Normalized Ratio 1.01 Activated Partial Thromboplast Time 26.4Sec Sodium Level 140mmol/L Potassium Level 4.3mmol/L Chloride Level 87mmol/L Carbon Dioxide Level 38mmol/L Anion Gap 19 Blood Urea Nitrogen 19mg/dl Creatinine 0.68mg/dl Glucose Level 548mg/dl Calcium Level 10.3mg/dl Total Bilirubin 0.5mg/dl Direct Bilirubin 0.00mg/dl Indirect Bilirubin 0.5mg/dl Aspartate Amino Transf (AST/SGOT) 43IU/L Alanine Aminotransferase (ALT/SGPT) 39IU/L Alkaline Phosphatase 224IU/L Troponin I < 0.012ng/ml Total Protein 8.3g/dl Albumin 4.4g/dl Globulin 3.90g/dl Albumin/Globulin Ratio 1.12 Lipase 1621U/L Current Medications Medications (Trade) Dose Ordered Sig/Cuca Route PRN Reason Start Time Stop Time Status Last Admin Dose Admin Sodium Chloride (NS) 500 ml @ 500 mls/hr Q1H STAT IV 12/02/16 01:48 12/02/16 02:47 DC 12/02/16 02:05 Ondansetron HCl (Zofran Inj) 4 mg ONCE STAT IV 12/02/16 01:48 12/02/16 01:50 DC 12/02/16 02:04 Lorazepam (Ativan) 2 mg STK-MED ONCE .ROUTE 12/02/16 03:26 12/02/16 03:27 DC Lorazepam (Ativan) 1 mg ONCE ONCE IV 12/02/16 03:30 12/02/16 03:43 DC 12/02/16 03:48 Ondansetron HCl (Zofran Inj) 4 mg ONCE STAT IV 12/02/16 03:25 12/02/16 03:43 DC 12/02/16 03:48 Procedures/MDM Medical decision making: This very pleasant but unfortunate patient has evidence of acute pancreatitis along with a developing small bowel obstruction versus ileus. Patient will be admitted to the hospitalist. Surgery on-call has had a consult placed in the chart. NG tube placed. Patient doing somewhat better with post NG tube and pain is resolved. Patient will be admitted to [facility]. EKG: Rate/Rhythm: Normal Sinus Rhythm QRS, ST, T-waves: No changes consistent w/ acute ischemia Impression: No evidence of ischemia or arrhythmia Chest X-ray 1V Interpreted by me: Soft Tissue: No acute abnormalities Bones: No acute abnormalities Mediastinum/Cardiac Silhouette/Lungs: [No acute abnormalities] Departure Diagnosis: Primary Impression: Acute pancreatitis Qualified Code: K85.90 - Acute pancreatitis, unspecified complication status, unspecified pancreatitis type Additional Impression: Small bowel obstruction Condition: Serious BRUCE SALAZAR Dec 02, 2016 04:07
[2016-12-02] MEDS ORDERED: INSULIN REGULAR, HUMAN 100 UNIT/1 ML 3ML VIAL SC ONE (04:30)
[2016-12-02] MEDS ORDERED: NACL 0.9% 3 ML SYG IV SCH (06:00)
[2016-12-02] MEDS ORDERED: ONDANSETRON 4 MG INJ IV PRN (06:00)
[2016-12-02] MEDS ORDERED: ACETAMINOPHEN 650 MG SUPP PR PRN (06:00)
[2016-12-02] MEDS: SOD CHLORIDE 0.9% 1,000 ML IV SCH ×3 (06:00→22:00)
[2016-12-02] MEDS: INSULIN GLARGINE [LANtus] 3 ML PEN SC SCH ×2 (06:28→08:00)
[2016-12-02] MEDS ORDERED: INSULIN ASPART [NOVOLOG] 3 ML PEN SC ONE (06:30)
[2016-12-02] MEDS ORDERED: GLUCAGON 1 MG INJ IM PRN (06:30)
[2016-12-02] MEDS ORDERED: GLUCOSE GEL 15 GRAM TUBE PO PRN ×2 (06:30)
[2016-12-02] MEDS ORDERED: DEXTROSE 50% 50 ML SYRINGE IV PRN ×2 (06:30)
[2016-12-02] MEDS ORDERED: GLUCOSE GEL 15 GRAM TUBE BUCCAL PRN (06:30)
--- NOTE | 2016-12-02 07:05 | HP ---
DATE OF ADMISSION: 12/02/2016 TIME SEEN: 5 a.m. CHIEF COMPLAINT: Abdominal pain, slight distention and vomiting. HISTORY OF PRESENT ILLNESS: The patient is a 66-year-old female with a history of hypertension, yuliana betes, dyslipidemia who presented to the Emergency Department with the above stated chief complaint. She said last night, she ate some chili which she thinks might have caused her symptoms. Abdomina l pain is associated with nonbilious, nonbloody vomiting. When she presented to the ER, blood pressure was 139/86, blood pressure in the ER has been documente d to be as high as 206/89. Laboratory values show a bicarbonate of 38, chloride 87, glucose of 548, alkaline phosphatase 224. WBC 12.3 and a lipase of 1600. CT abdomen and pelvis shows a finding that is nonspecific but suggestive of a partial or evolving sm all bowel obstruction. Also noted was a nonobstructing 5 mm stone in the left kidney. The patient received Zofran, IV fluids, Ativan and 8 units of regular insulin while she was in the ER. REVIEW OF SYSTEMS: A 12-point review of systems was performed and is negative except as mentioned i n HPI. PAST MEDICAL HISTORY: As per HPI. PAST SURGICAL HISTORY: Tubal ligation and and right shoulder surgery. SOCIAL HISTORY: Denied a history of tobacco, alcohol or illicit drug use. ALLERGIES: 1. CODEINE. 2. MORPHINE. HOME MEDICATIONS: 1. Losartan. 2. Metoprolol XL. 3. Aspirin. 4. Prilosec. 5. Glyburide. 6. Insulin. PHYSICAL EXAMINATION: VITALS: Blood pressure 151/66, heart rate 81, respiratory rate 16, temperature 98.3, oxygen saturat ion earlier was 95% on room air. GENERAL: No acute distress. She is Syriac speaking only and answering questions appropriately thr ough certified legal secretary specialist. HEENT: No obvious head deformity. Pupils reactive to light. Extraocular muscles intact. CARDIOVASCULAR: Slightly tachycardic with regular rhythm. LUNGS: Clear. ABDOMEN: Soft. There is mild tenderness to palpation mainly in the epigastric area. No guarding, n o rebound tenderness. EXTREMITIES: No edema. NEUROLOGIC: No focal deficits. LABORATORY DATA: Pertinent positives are as mentioned in the HPI. IMAGING: CT abdomen and pelvis without contrast. Results as mentioned in the HPI. Chest x-ray show s patchy nodular right mid lung airspace disease. IMPRESSION: 1. Acute pancreatitis. 2. Partial small bowel obstruction. 3. Abdominal pain/distention and vomiting, secondary to #1 and #2. 4. Diabetes with severe hyperglycemia. 5. Hypertensive urgency, blood pressure better controlled. 6. History of dyslipidemia. 7. Systemic inflammatory response syndrome (SIRS) as evidenced by leukocytosis and tachycardia, lik vee secondary to acute pancreatitis. PLAN: We will keep n.p.o. with IV fluid. We will provide pain medication and antiemetics as needed . Currently, she is awaiting surgical re-evaluation by Dr. Phan. She will be placed on insulin fo r better glycemic control. She will receive IV antihypertensives and we will adjust as needed. We will correct electrolytes as needed. Once she is no longer n.p.o., we will resume her home medicati ons. Further workup and management per clinical course. Dictated By: BRUCE TREVINO/DAINA Conf#: [id number] DID#: [id number]
[2016-12-02] MEDS: ALBUTEROL/IPRATROPIUM (NEB) 3 ML AMP HHN SCH ×3 (08:00→21:22)
[2016-12-02] MEDS: FAMOTIDINE 20 MG INJ IV SCH ×2 (09:48→22:03)
[2016-12-02] MEDS: INSULIN ASPART [NOVOLOG] 3 ML PEN SC SCH ×4 (09:58→22:04)
[2016-12-02] MEDS: hydrALAzine 20 MG INJ IV PRN (11:04)
[2016-12-02] MEDS: METOCLOPRAMIDE 10 MG INJ IV SCH (17:17)
[2016-12-02 17:54] LABS: ADD UMIC YES; URINE BILIRUBIN (Dip) NEGATIVE (NEGATIVE); URINE BLOOD (Dip) 1+ (NEGATIVE); URINE COLOR LT. YELLOW (YELLOW); URINE KETONES (Dip) NEGATIVE (NEGATIVE); URINE LEUKOCYTE ESTERASE (Dip) 3+ (NEGATIVE); URINE NITRITE (Dip) NEGATIVE (NEGATIVE); URINE TOTAL PROTEIN (Dip) 1+ (NEGATIVE); URINE UROBILINOGEN (Dip) 0.2 E.U./dL (0.1-1.0)
[2016-12-02] MEDS ORDERED: ACETAMINOPHEN 325 MG TAB PO PRN (18:00)
[2016-12-02 18:09] LABS: BACTERIA,URINE MODERATE
[2016-12-02] MEDS ORDERED: DOCUSATE SODIUM 100 MG CAP PO SCH (21:00)
[2016-12-03] VITALS (14 sets, daily range): BP systolic 123–185; BP diastolic 56–81; PULSE 81–90; RESP 17–20
[2016-12-03] MEDS: SOD CHLORIDE 0.9% 1,000 ML IV SCH ×5 (00:21→19:03)
[2016-12-03] MEDS: METOCLOPRAMIDE 10 MG INJ IV SCH ×4 (00:21→17:40)
[2016-12-03] MEDS: INSULIN ASPART [NOVOLOG] 3 ML PEN SC SCH ×6 (00:33→20:45)
[2016-12-03] MEDS: ALBUTEROL/IPRATROPIUM (NEB) 3 ML AMP HHN SCH ×4 (03:09→20:50)
[2016-12-03 07:33] LABS: ADD SCAN DIFF NO
[2016-12-03 07:42] LABS: BASOPHILS % 0.3 % (0.0-2.0); EOSINOPHILS # 0.3 10^3/ul (0.0-0.5); EOSINOPHILS % 3.2 % (0.0-7.0); HEMATOCRIT 36.2 % (37.0-47.0); HEMOGLOBIN 11.7 g/dl (12.0-16.0); LYMPHOCYTES # 2.9 10^3/ul (0.8-2.9); LYMPHOCYTES % 28.8 % (15.0-51.0); MEAN CORPUSCULAR HEMOGLOBIN 25.8 pg (29.0-33.0); MEAN CORPUSCULAR HGB CONC 32.3 g/dl (32.0-37.0); MEAN CORPUSCULAR VOLUME 79.7 fl (82.0-101.0); MEAN PLATELET VOLUME 12.6 fl (7.4-10.4); MONOCYTE # 0.5 10^3/ul (0.3-0.9); NEUTROPHIL # 6.2 10^3/ul (1.6-7.5); NEUTROPHILS % 62.5 % (39.0-77.0); PLATELET COUNT 160 10^3/UL (140-415); RED BLOOD COUNT 4.54 10^6/ul (4.20-5.40); RED CELL DISTRIBUTION WIDTH 14.6 % (11.5-14.5); WHITE BLOOD COUNT 9.9 10^3/ul (4.8-10.8)
[2016-12-03 08:03] LABS: ALBUMIN 3.5 g/dl (3.3-4.9)
[2016-12-03 08:06] LABS: BILIRUBIN,INDIRECT 0.5 mg/dl (0-1.1); BILIRUBIN,TOTAL 0.5 mg/dl (0.2-1.3); CREATININE 0.63 mg/dl (0.44-1.00); PHOSPHORUS 3.4 mg/dl (2.5-4.9)
[2016-12-03 08:07] LABS: CALCIUM 8.5 mg/dl (8.4-10.2)
[2016-12-03 08:34] LABS: THYROID STIMULATING HORMONE 1.36 MIU/L (0.465-4.680)
[2016-12-03] MEDS: INSULIN GLARGINE [LANtus] 3 ML PEN SC SCH (08:39)
[2016-12-03] MEDS: POLYETHYLENE GLYCOL 17 GM PACKET PO SCH (08:41)
[2016-12-03] MEDS: FAMOTIDINE 20 MG INJ IV SCH ×2 (08:41→19:57)
[2016-12-03] MEDS: DOCUSATE SODIUM 10 MG/ML (10ML CUP) NGT SCH ×2 (08:41→19:57)
--- NOTE | 2016-12-03 15:42 | PN ---
Date/Time of Note Date/Time of Note DATE: 12/03/16 TIME: 13:19 Assessment/Plan VTE Prophylaxis VTE Prophylaxis Intervention: SCD's Lines/Catheters IV Catheter Type (from Nrsg): Peripheral IV Urinary Cath still in place: No Assessment/Plan Assessment/Plan 1. Acute pancreatitis: resolved? 2. Partial small bowel obstruction 3. Abdominal pain/distention and vomiting, secondary to #1 and #2: improved 4. Uncontrolled DM 2 A1C 10.2: Control is still suboptimal. 5. Hypertensive urgency, blood pressure better controlled but still suboptimal 6. Dyslipidemia. 7. Systemic inflammatory response syndrome (SIRS) 2/2 #1 and #8: improved 8. UTI PLAN: * Remain NPO for now * SBFT, commence CLD if negative * Begin empiric abx / send urine for culture * Titrating BP and diabetic control is difficult while NPO, continue PRNs for now * Continue PRN pain control/ antiemetics/ antipyretics/ supportive care PROPHYLAXIS: Pepcid / scds Subjective 24 Hr Interval Summary Free Text/Dictation c/o hungry, wants something to eat, abd pain is improved but still present Exam/Review of Systems Vital Signs Vitals Vital Signs Date Time Temp Pulse Resp B/P Pulse Ox O2 Delivery O2 Flow Rate FiO2 12/03/16 13:10 81 12/03/16 08:21 18 92 21 12/03/16 07:48 98.3 147/63 12/02/16 09:00 Nasal Cannula 2.0 Intake and Output 12/02/16 12/02/16 12/03/16 14:59 22:59 06:59 Intake Total 530 ml 510 ml Output Total 950 ml 750 ml Balance -420 ml -240 ml Exam Constitutional: alert, frail, oriented, No distress Psych: anxiety Head: atraumatic, normocephalic Eyes: PERRL ENMT: No mucosa pink and moist (dry) Neck: supple Respiratory: clear to auscultation, normal air movement Cardiovascular: nl pulses, regular rate and rhythm Gastrointestinal: bowel sounds, non-tender, other (NGT in place, no further drainage), soft Extremities: No edema Neurological: nl mental status, nl speech Results Result Diagram: 12/03/16 0641 12/03/16 0647 Results 24 hrs Laboratory Tests Test 12/02/16 13:28 12/02/16 16:55 12/02/16 17:00 12/02/16 22:02 Bedside Glucose 87 138 203 Urine Color LT. YELLOW Urine Clarity TURBID Urine pH 7.[address] 1.010 Urine Ketones NEGATIVE Urine Nitrite NEGATIVE Urine Bilirubin NEGATIVE Urine Urobilinogen 0.2 E.U./dL Urine Leukocyte Esterase 3+ H Urine Microscopic RBC 5-10 Urine Microscopic WBC >200 Urine Epithelial Cells FEW Urine Bacteria MODERATE Urine Hemoglobin 1+ H Urine Glucose 0.25% H Urine Total Protein 1+ H Test 12/03/16 00:21 12/03/16 05:17 12/03/16 06:41 12/03/16 06:47 Bedside Glucose 201 158 White Blood Count 9.9 Red Blood Count 4.54 Hemoglobin 11.7 L Hematocrit 36.2 L Mean Corpuscular Volume 79.7 L Mean Corpuscular Hemoglobin 25.8 L Mean Corpuscular Hemoglobin Concent 32.3 Red Cell Distribution Width 14.6 H Platelet Count 160 # Mean Platelet Volume 12.6 H Neutrophils % 62.5 Lymphocytes % 28.8 Monocytes % 5.0 Eosinophils % 3.2 Basophils % 0.3 Nucleated Red Blood Cells % 0.0 Neutrophils # 6.2 Lymphocytes # 2.9 Monocytes # 0.5 Eosinophils # 0.3 Basophils # 0.0 Nucleated Red Blood Cells # 0.0 Hemoglobin A1c 10.5 H Amylase Level 57 Lipase 101 Thyroid Stimulating Hormone (TSH) 1.360 Sodium Level 141 Potassium Level 4.0 Chloride Level 108 # Carbon Dioxide Level 27 # Anion Gap 10 # Blood Urea Nitrogen 13 Creatinine 0.63 Glucose Level 204 Calcium Level 8.5 Phosphorus Level 3.4 Total Bilirubin 0.5 Direct Bilirubin 0.00 Indirect Bilirubin 0.5 Aspartate Amino Transf (AST/SGOT) 56 H Alanine Aminotransferase (ALT/SGPT) 33 Alkaline Phosphatase 121 Total Protein 7.0 # Albumin 3.5 Globulin 3.50 H Albumin/Globulin Ratio 1.00 Test 12/03/16 08:34 12/03/16 12:53 Bedside Glucose 178 166 Medications Medications Current Medications Sodium Chloride (NS) 1,000 ml @ 125 mls/hr Q8H IV Last administered on t 10:24; Admin Dose 125 MLS/HR; Start 12/02/16 at 06:00 Ondansetron HCl (Zofran Inj) 4 mg Q6H PRN IV NAUSEA AND/OR VOMITING; Start 12/02 at 06:00 Acetaminophen (Tylenol Supp) 650 mg Q6H PRN MO PAIN LEVEL 1-3 OR FEVER; Start 12/02/16 at 06:00 Famotidine (Pepcid Iv) 20 mg Q12 IV Last administered on 12/03/16 08:41; Admin Dose 20 MG; Start 12/02/16 at 09:00 Miscellaneous Information (* Miscellaneous Pharmacy Order) 1 ea PRN PRN XX WOUND CARE; Start 12/02/16 at 06:00 Insulin Aspart (Novolog Insulin Pen) NOVOLOG *MODERATE* ALGORI... Q4 SC Last administered on 12/03/16 08:38; Admin Dose 2 UNIT; Start 12/02/16 at 09:00 Hydralazine HCl (Apresoline) 10 mg Q4H PRN IV SBP > 160 Last administered on 11:04; Admin Dose 10 MG; Start 12/02/16 at 06:00 Miscellaneous Information 1 ea NOTE XX ; Start 12/02/16 at 06:30 Glucose (Glutose) 15 gm Q15M PRN PO DECREASED GLUCOSE; Start 12/02/16 at 06:30 Glucose (Glutose) 22.5 gm Q15M PRN PO DECREASED GLUCOSE; Start 12/02/16 at 06:30 Dextrose (D50w Syringe) 25 ml Q15M PRN IV DECREASED GLUCOSE; Start 12/02/16 at 06:30 Dextrose (D50w Syringe) 50 ml Q15M PRN IV DECREASED GLUCOSE; Start 12/02/16 at 06:30 Glucagon (Glucagen) 1 mg Q15M PRN IM DECREASED GLUCOSE; Start 12/02/16 at 06:30 Glucose (Glutose) 15 gm Q15M PRN BUCCAL DECREASED GLUCOSE; Start 12/02/16 at 06: 30 Insulin Glargine (Lantus) 10 unit DAILY@08 SC Last administered on 12/03/16 08: 39; Admin Dose 10 UNIT; Start 12/03/16 at 08:00 Metoclopramide HCl (Reglan) 10 mg Q6 IV Last administered on 12/03/16 06:49; Admin Dose 10 MG; Start 12/02/16 at 18:00; Stop 12/04/16 at 17:59 Polyethylene Glycol (Miralax) 17 gm DAILY PO Last administered on 12/03/16 08: 41; Admin Dose 17 GM; Start 12/03/16 at 09:00 Acetaminophen (Tylenol Tab) 650 mg Q6H PRN PO PAIN AND OR ELEVATED TEMP; Start 12/02/16 at 18:00 Docusate Sodium (Colace Liquid Cup) 100 mg BID NGT Last administered on 08:41; Admin Dose 100 MG; Start 12/03/16 at 09:00 SHANTAL MACKENZIE Dec 03, 2016 13:29
[2016-12-03] MEDS: CEFTRIAXONE 1 GM/50 ML (PMX) 50 ML IVPB SCH (15:52)
[2016-12-03] MEDS: hydrALAzine 20 MG INJ IV PRN (19:57)
[2016-12-04] VITALS (13 sets, daily range): BP systolic 147–182; BP diastolic 56–78; PULSE 82–103; RESP 18–20
[2016-12-04] MEDS: INSULIN ASPART [NOVOLOG] 3 ML PEN SC SCH ×5 (01:25→22:35)
[2016-12-04] MEDS: METOCLOPRAMIDE 10 MG INJ IV SCH ×3 (01:28→12:19)
[2016-12-04] MEDS: SOD CHLORIDE 0.9% 1,000 ML IV SCH ×3 (01:29→12:20)
[2016-12-04] MEDS: ALBUTEROL/IPRATROPIUM (NEB) 3 ML AMP HHN SCH ×4 (01:45→20:26)
[2016-12-04] MEDS: INSULIN GLARGINE [LANtus] 3 ML PEN SC SCH (08:25)
[2016-12-04 08:28] LABS: ADD SCAN DIFF NO
[2016-12-04 08:43] LABS: BASOPHILS % 0.4 % (0.0-2.0); EOSINOPHILS # 0.4 10^3/ul (0.0-0.5); EOSINOPHILS % 4.4 % (0.0-7.0); HEMATOCRIT 37.1 % (37.0-47.0); HEMOGLOBIN 12.1 g/dl (12.0-16.0); LYMPHOCYTES # 2.4 10^3/ul (0.8-2.9); LYMPHOCYTES % 25.2 % (15.0-51.0); MEAN CORPUSCULAR HEMOGLOBIN 26.1 pg (29.0-33.0); MEAN CORPUSCULAR HGB CONC 32.6 g/dl (32.0-37.0); MEAN CORPUSCULAR VOLUME 80.1 fl (82.0-101.0); MEAN PLATELET VOLUME 12.3 fl (7.4-10.4); MONOCYTE # 0.5 10^3/ul (0.3-0.9); MONOCYTES % 5.2 % (0.0-11.0); NEUTROPHILS % 64.5 % (39.0-77.0); PLATELET COUNT 176 10^3/UL (140-415); RED BLOOD COUNT 4.63 10^6/ul (4.20-5.40); RED CELL DISTRIBUTION WIDTH 14.2 % (11.5-14.5); WHITE BLOOD COUNT 9.4 10^3/ul (4.8-10.8)
[2016-12-04 08:55] LABS: CREATININE 0.58 mg/dl (0.44-1.00)
[2016-12-04 08:56] LABS: CALCIUM 8.6 mg/dl (8.4-10.2); MAGNESIUM 1.8 mg/dl (1.7-2.5)
[2016-12-04 09:01] LABS: IRON 40 ug/dl (35-150)
[2016-12-04] MEDS ORDERED: DIATR MEGLU/DIATRIZOATE SODIUM 120 ML BTL ONE ×2 (09:07)
[2016-12-04 09:12] LABS: TOTAL IRON BINDING CAPACITY 322 ug/dl (241-421)
[2016-12-04 10:11] LABS: AMYLASE 82 U/L (11-123)
[2016-12-04] MEDS: FAMOTIDINE 20 MG INJ IV SCH ×2 (10:36→21:53)
[2016-12-04] MEDS: hydrALAzine 20 MG INJ IV PRN (10:47)
[2016-12-04] MEDS: DOCUSATE SODIUM 10 MG/ML (10ML CUP) NGT SCH ×2 (10:54→21:00)
[2016-12-04] MEDS: POLYETHYLENE GLYCOL 17 GM PACKET PO SCH (10:54)
--- NOTE | 2016-12-04 11:51 | PN ---
Date/Time of Note Date/Time of Note DATE: 12/04/16 TIME: 11:49 Assessment/Plan VTE Prophylaxis VTE Prophylaxis Intervention: SCD's Lines/Catheters IV Catheter Type (from Nrsg): Peripheral IV Urinary Cath still in place: No Assessment/Plan Assessment/Plan 1. Acute pancreatitis: resolved? 2. Partial small bowel obstruction 3. Abdominal pain/distention and vomiting, secondary to #1 and #2: improved 4. Uncontrolled DM 2 A1C 10.2: Control is still suboptimal. 5. Hypertensive urgency, blood pressure better controlled but still suboptimal 6. Dyslipidemia. 7. Systemic inflammatory response syndrome (SIRS) 2/2 #1 and #8: improved 8. Gram negative jill UTI PLAN: * SBFT results still pending but patient has had multiple BMs, she's very hungry , I'm comfortable starting clears for now pending results of SBFT * Continua abx of UTO f/u final cultures * Start oral meds and SSI and titrate for improved control * Continue PRN pain control/ antiemetics/ antipyretics/ supportive care PROPHYLAXIS: Pepcid / scds Subjective 24 Hr Interval Summary Free Text/Dictation having multiple bowel movement Exam/Review of Systems Vital Signs Vitals Vital Signs Date Time Temp Pulse Resp B/P Pulse Ox O2 Delivery O2 Flow Rate FiO2 12/04/16 10:30 91 18 182/78 Room Air 12/04/16 08:07 93 21 12/04/16 07:48 99.5 12/02/16 09:00 2.0 Intake and Output 12/03/16 12/03/16 12/04/16 15:00 23:00 07:00 Intake Total 1000 ml 1150 ml 900 ml Output Total 100 ml 50 ml Balance 1000 ml 1050 ml 850 ml Exam Constitutional: alert, frail, oriented, No distress Psych: anxiety Head: atraumatic, normocephalic Eyes: PERRL ENMT: No mucosa pink and moist (dry) Neck: supple Respiratory: clear to auscultation, normal air movement Cardiovascular: nl pulses, regular rate and rhythm Gastrointestinal: bowel sounds, non-tender, other (NGT in place, no further drainage), soft Extremities: No edema Neurological: nl mental status, nl speech Results Result Diagram: 12/04/16 0715 12/04/16 0715 Results 24 hrs Laboratory Tests Test 12/03/16 12:53 4/4/17 17:32 12/03/16 20:33 12/04/16 01:18 Bedside Glucose 166 180 160 195 Test 12/04/16 05:38 12/04/16 07:15 12/04/16 07:30 12/04/16 07:41 Bedside Glucose 174 178 White Blood Count 9.4 Red Blood Count 4.63 Hemoglobin 12.1 Hematocrit 37.1 Mean Corpuscular Volume 80.1 L Mean Corpuscular Hemoglobin 26.1 L Mean Corpuscular Hemoglobin Concent 32.6 Red Cell Distribution Width 14.2 Platelet Count 176 Mean Platelet Volume 12.3 H Neutrophils % 64.5 Lymphocytes % 25.2 Monocytes % 5.2 Eosinophils % 4.4 Basophils % 0.4 Nucleated Red Blood Cells % 0.0 Neutrophils # 6.0 Lymphocytes # 2.4 Monocytes # 0.5 Eosinophils # 0.4 Basophils # 0.0 Nucleated Red Blood Cells # 0.0 Sodium Level 138 Potassium Level 4.0 Chloride Level 106 Carbon Dioxide Level 24 Anion Gap 12 Blood Urea Nitrogen 10 Creatinine 0.58 Glucose Level 185 Calcium Level 8.6 Magnesium Level 1.8 Iron Level 40 Total Iron Binding Capacity 322 Percent Iron Saturation 12 L Amylase Level 82 Lipase 73 Test 12/04/16 10:30 Bedside Glucose 227 H Medications Medications Current Medications Sodium Chloride (NS) 1,000 ml @ 125 mls/hr Q8H IV Last administered on 05:39; Admin Dose 125 MLS/HR; Start 12/02/16 at 06:00 Ondansetron HCl (Zofran Inj) 4 mg Q6H PRN IV NAUSEA AND/OR VOMITING; Start 12/02 at 06:00 Acetaminophen (Tylenol Supp) 650 mg Q6H PRN IN PAIN LEVEL 1-3 OR FEVER Last administered on 12/04/16 10:36; Admin Dose 650 MG; Start 12/02/16 at 06:00 Famotidine (Pepcid Iv) 20 mg Q12 IV Last administered on 12/04/16 10:36; Admin Dose 20 MG; Start 12/02/16 at 09:00 Miscellaneous Information (* Miscellaneous Pharmacy Order) 1 ea PRN PRN XX WOUND CARE; Start 12/02/16 at 06:00 Insulin Aspart (Novolog Insulin Pen) NOVOLOG *MODERATE* ALGORI... Q4 SC Last administered on 12/04/16 10:51; Admin Dose 6 UNIT; Start 12/02/16 at 09:00 Hydralazine HCl (Apresoline) 10 mg Q4H PRN IV SBP > 160 Last administered on 10:47; Admin Dose 10 MG; Start 12/02/16 at 06:00 Miscellaneous Information 1 ea NOTE XX ; Start 12/02/16 at 06:30 Glucose (Glutose) 15 gm Q15M PRN PO DECREASED GLUCOSE; Start 12/02/16 at 06:30 Glucose (Glutose) 22.5 gm Q15M PRN PO DECREASED GLUCOSE; Start 12/02/16 at 06:30 Dextrose (D50w Syringe) 25 ml Q15M PRN IV DECREASED GLUCOSE; Start 12/02/16 at 06:30 Dextrose (D50w Syringe) 50 ml Q15M PRN IV DECREASED GLUCOSE; Start 12/02/16 at 06:30 Glucagon (Glucagen) 1 mg Q15M PRN IM DECREASED GLUCOSE; Start 12/02/16 at 06:30 Glucose (Glutose) 15 gm Q15M PRN BUCCAL DECREASED GLUCOSE; Start 12/02/16 at 06: 30 Insulin Glargine (Lantus) 10 unit DAILY@08 SC Last administered on 12/04/16 08: 25; Admin Dose 10 UNIT; Start 12/03/16 at 08:00 Metoclopramide HCl (Reglan) 10 mg Q6 IV Last administered on 12/04/16 06:25; Admin Dose 10 MG; Start 12/02/16 at 18:00; Stop 12/04/16 at 17:59 Polyethylene Glycol (Miralax) 17 gm DAILY PO Last administered on 12/03/16 08: 41; Admin Dose 17 GM; Start 12/03/16 at 09:00 Acetaminophen (Tylenol Tab) 650 mg Q6H PRN PO PAIN AND OR ELEVATED TEMP Last administered on 12/03/16 20:30; Admin Dose 650 MG; Start 12/02/16 at 18:00 Docusate Sodium 100 mg 100 mg BID NGT Last administered on 12/03/16 19:57; Admin Dose 100 MG; Start 12/03/16 at 09:00 Ceftriaxone Sodium (Rocephin) 50 ml @ 100 mls/hr Q24H IVPB Last administered on 12/03/16t 15:52; Admin Dose 100 MLS/HR; Start 12/03/16 at 13:30 SHANTAL MACKENZIE Dec 04, 2016 11:51 SHANTAL MACKENZIE Dec 04, 2016 11:51
[2016-12-04] MEDS: LISINOPRIL 20 MG TAB PO SCH (12:21)
[2016-12-04] MEDS: METOPROLOL 25 MG TAB PO SCH ×2 (12:21→21:53)
--- NOTE | 2016-12-04 13:49 | RADRPT ---
PROCEDURE: Small bowel follow-through. CLINICAL INDICATION: Abdomen pain. TECHNIQUE: Water-soluble contrast was administered via the nasogastric tube and several spot and o verhead radiographs of the abdomen were obtained. COMPARISON: None. FINDINGS: On the preliminary radiograph, the nasogastric tube is coiled in the duodenum. This was retracted a pproximately 25 cm and an additional radiograph was obtained demonstrating the catheter tip in the d istal stomach. There is no other abnormality on the preliminary radiograph. There is no small bowel displacement or mass. The small bowel folds are normal. There is no evidence of obstruction. Transit time is normal with contrast in the colon at 30 minutes. IMPRESSION: 1. Nasogastric tube repositioned in the stomach. 2. Otherwise normal small bowel follow-through. RPTAT: QQ .Jonny Ellington MD, Date Time Electronically viewed and signed by .Jonny Ellington MD, on 12/04/2016 13:48 .R/
[2016-12-04] MEDS: CEFTRIAXONE 1 GM/50 ML (PMX) 50 ML IVPB SCH (13:55)
[2016-12-05] VITALS (9 sets, daily range): BP systolic 118–149; BP diastolic 59–72; PULSE 77–89; RESP 18–20
[2016-12-05] MEDS ORDERED: ACCU-CHEK XX SCH (02:00)
[2016-12-05] MEDS: ALBUTEROL/IPRATROPIUM (NEB) 3 ML AMP HHN SCH ×3 (02:09→13:42)
[2016-12-05] MEDS: SOD CHLORIDE 0.9% 1,000 ML IV SCH ×2 (04:42→18:02)
[2016-12-05 07:23] LABS: ADD SCAN DIFF NO
[2016-12-05 07:34] LABS: BASOPHILS % 0.3 % (0.0-2.0); EOSINOPHILS # 0.5 10^3/ul (0.0-0.5); EOSINOPHILS % 5.8 % (0.0-7.0); HEMATOCRIT 36.4 % (37.0-47.0); LYMPHOCYTES # 2.9 10^3/ul (0.8-2.9); LYMPHOCYTES % 36.7 % (15.0-51.0); MEAN CORPUSCULAR HEMOGLOBIN 26.3 pg (29.0-33.0); MEAN CORPUSCULAR VOLUME 79.8 fl (82.0-101.0); MEAN PLATELET VOLUME 11.7 fl (7.4-10.4); MONOCYTE # 0.4 10^3/ul (0.3-0.9); MONOCYTES % 4.7 % (0.0-11.0); NEUTROPHIL # 4.1 10^3/ul (1.6-7.5); NEUTROPHILS % 52.2 % (39.0-77.0); PLATELET COUNT 168 10^3/UL (140-415); RED BLOOD COUNT 4.56 10^6/ul (4.20-5.40); RED CELL DISTRIBUTION WIDTH 14.2 % (11.5-14.5); WHITE BLOOD COUNT 7.9 10^3/ul (4.8-10.8)
[2016-12-05 07:54] LABS: POTASSIUM 3.6 mmol/L (3.5-5.1)
[2016-12-05 07:56] LABS: CREATININE 0.53 mg/dl (0.44-1.00)
[2016-12-05 07:57] LABS: CALCIUM 8.6 mg/dl (8.4-10.2)
[2016-12-05] MEDS: INSULIN ASPART [NOVOLOG] 3 ML PEN SC SCH ×3 (08:24→17:54)
[2016-12-05] MEDS: DOCUSATE SODIUM 10 MG/ML (10ML CUP) NGT SCH (08:27)
[2016-12-05] MEDS: LISINOPRIL 20 MG TAB PO SCH (08:27)
[2016-12-05] MEDS: POLYETHYLENE GLYCOL 17 GM PACKET PO SCH (08:27)
[2016-12-05] MEDS: FAMOTIDINE 20 MG INJ IV SCH (08:27)
[2016-12-05] MEDS: METOPROLOL 25 MG TAB PO SCH (08:27)
[2016-12-05] MEDS: INSULIN GLARGINE [LANtus] 3 ML PEN SC SCH (08:37)
[2016-12-05] MEDS ORDERED: INSULIN ASP PROT/ASPART (70/30) PEN SC SCH (12:30)
[2016-12-05] MEDS ORDERED: ERTAPENEM SODIUM 1 GM in SOD CHLORIDE 0.9% 100 ML IVPB SCH (12:30)
--- NOTE | 2016-12-05 12:52 | PDOCDIS ---
Discharge Instructions DIAGNOSIS Discharge Diagnosis: Pancreatitis / SBO / UTI CONDITION Patient Condition: Stable HOME CARE INSTRUCTIONS: Diet Instructions: Reduced CalorieSpecial Diet: 1800 calorie ADA diet ACTIVITY: Activity Restrictions: Slowly Increase Activity Rest between Activity FOLLOW UP/APPOINTMENTS Appointments Followup with your primary doctor within the next 1-2 weeks. If you don't have one please let someone know, we can give you resources that may help you pick one. You may also call Dr Claude Barksdale's office. he's accepting new patients Name, Degree: Claude Barksdale MD Specialty: Internal Medicine Comments: Office Address: [address] [place] [address] [place] [id number] Office Office You may also call your insurance company to assign one to you. Review your medication list with your nurse before leaving and if you need new prescriptions please let your nurse know. I may have made changes to your home medications or given you new prescriptions , please let your primary doctor know as well. Stay compliant with your medications and report any side effects to your PCP or pharmacist. Return to the ER if you have any concerns and cannot reach your doctors or call your insurance company, they usually have a nurse that can help you. OTHER ORDERS: Other Orders: * Repeat urine culture in 1 week for test of sure * Remove PICC line upon completion of antibiotics if patient has one. SHANTAL MACKENZIE Dec 05, 2016 12:52
[2016-12-05] MEDS ORDERED: LANT3I SC (13:01)
[2016-12-05] MEDS ORDERED: POLY17PO6 PO (13:01)
[2016-12-05] MEDS ORDERED: METF1000 PO (13:01)
[2016-12-05] MEDS ORDERED: LOSA100T7 PO (13:01)
[2016-12-05] MEDS ORDERED: ASPI-664 PO (13:01)
[2016-12-05] MEDS ORDERED: NOVO3I SC (13:01)
[2016-12-05] MEDS ORDERED: METO50TA16 PO (13:01)
[2016-12-05] MEDS ORDERED: GLYB5TAB3 PO (13:01)
[2016-12-05] MEDS: metFORMIN 500 MG TAB PO SCH ×2 (13:28→17:54)
--- NOTE | 2016-12-05 14:31 | DS ---
DATE OF ADMISSION: 12/02/2016 DATE OF DISCHARGE: 12/05/2016 PRESENTING COMPLAINT: Abdominal pain, distention, and vomiting. ADMISSION DIAGNOSES: 1. Acute pancreatitis. 2. Partial small bowel obstruction. 3. Abdominal pain, distention, and vomiting secondary to #1 and #2. 4. Diabetes with associated hyperglycemia. 5. Hypertensive urgency. 6. History of dyslipidemia. 7. Systemic inflammatory response syndrome, likely secondary to acute pancreatitis. CONSULTS ON THE CASE: None. INTERVENTIONS: The patient was kept n.p.o., had IV fluid hydration and pain control. She had a nelly st x-ray December 02, showed patchy nodular right mid lung airspace disease that is chronic from exams from October 17. She had abdominal CT that showed nonspecific, but was suggestive of partial ev olving small bowel obstruction and some atherosclerosis and a nonobstructing kidney stone, and then she had a small bowel follow through that was normal. She had a G-tube placed to low intermittent s uction. She also had a urine culture that grew out ESBL E coli. HOSPITAL COURSE: Full details are available in chart for review. The patient was admitted with abd ominal pain and evidence of pancreatitis and probable small bowel obstruction. She was treated cons ervatively with NG tube and IV hydration and pain medications. She underwent a small bowel follow-t hrough which came back negative and after which she was commenced on a diet which she has tolerated quite well. Urine culture, however, grew out E coli ESBL as such, she has been having to be sent to him on antibiotics for a 10-day course with IV ertapenem. At this time, we are waiting on communic ation from the home health agency to determine if the patient will require a PICC line or not. If s he does, a PICC line will be placed prior to discharge. Otherwise, her blood sugar and her blood pr essure was elevated when she first came in, and this was managed aggressively and the patient did we ll in the hospital. Her regimen was modified slightly for better control. This was communicated to her, however, and she was recommended to communicate this to her primary care doctor as well. At t his time, she has been assessed and found to be stable for discharge. DISCHARGE DIET: 1800 ADA calorie. ACTIVITIES: As tolerated. DISCHARGE MEDICATIONS: Please review the medication reconciliation sheet. Time spent on discharge planning 45 minutes. Dictated By: SHANTAL MACKENZIE MD, BA/DAINA Conf#: [id number] DID#: [id number]
[2016-12-05] MEDS ORDERED: glyBURIDE 5 MG TAB PO SCH (17:55)
== END 2016-12-05 18:50 | disposition home health service (06) | DRG 438 ==
LOC: E/R 01:41 → PP2 03:49 → TEL 08:30
PROVIDERS: ADMIT Internal Medicine; ATTEND Internal Medicine
DX: K85.90 Acute pancreatitis without necrosis or infection, unspecified (principal); A41.9 Sepsis, unspecified organism; K56.60 Unspecified intestinal obstruction; R65.10 Systemic inflammatory response syndrome (SIRS) of non-infectious origin without acute organ dysfunction; N39.0 Urinary tract infection, site not specified; E11.65 Type 2 diabetes mellitus with hyperglycemia; I16.0 Hypertensive urgency; B96.89 Other specified bacterial agents as the cause of diseases classified elsewhere; Z79.82 Long term (current) use of aspirin; Z79.4 Long term (current) use of insulin; E78.5 Hyperlipidemia, unspecified
CPT/HCPCS: 36415; 71010; 74176; 74250; 80048; 80053; 81001; 81003; 82150; 82947; 82962; 83036; 83540; 83690; 83735; 84100; 84443; 84484; 85025; 85610; 85730; 87086; 93005; 94640; 94664; 96372; 96374; 96375; 96376; J0360; J0696; J1335; J1815; J1817; J2060; J2405; J2765; J7030; J7040

== ENCOUNTER 2017-01-15 12:29 | Emergency (ER) | payer MEDICARE, OTHER ==
[~2017-01-15] VITALS: Ht 152.4 cm; Wt 65.0 kg
[~2017-01-15 12:29] MED LIST changes: -HUM100VI14 SC; +LANT3I SC; -LEVO750T25 PO; +LOSA100T7 PO; -LOSA50TA6 PO; +NOVO3I SC; +POLY17PO6 PO
[2017-01-15 12:42] VITALS: Ht 152.4 cm; Wt 65.0 kg
[2017-01-15] MEDS ORDERED: D-ME473S18 PO (13:55)
[2017-01-15] MEDS ORDERED: FLUT9.9S NASAL (13:55)
[2017-01-15] MEDS ORDERED: CETI10CA PO (13:55)
--- NOTE | 2017-01-15 14:23 | ERD ---
ER Documentation Chief Complaint Date/Time DATE: 01/15/17 TIME: 14:[address] WITH COUGH & FLU-LIKE SYMTPOMS X 4 DAYS HPI 58-year-old female comes to the emergency department with sore throat, cough, runny nose for the past 4 days. She states that she has had a watering discharge from the [facility], dry cough. She has not tried anything for this so far. She denies any fevers or chills. She denies chest pain or shortness of breath. ROS All systems reviewed and are negative except as per history of present illness. Medications Home Meds Active Scripts Dextromethorphan Hb-Promethazine Hcl (Promethazine DM Syrup) 473 Ml Syrup, 5 ML PO Q6H Y for COUGH, #4 OZ Prov:YANI CHOWDHURY PA-C 01/15/17 Cetirizine Hcl* (Zyrtec*) 10 Mg Capsule, 10 MG PO DAILY, #10 TAB.CHEW Prov:YANI CHOWDHURY PA-C 01/15/17 Fluticasone Propionate (Flonase Allergy Relief) 9.9 Ml [place].susp, 1 SPRAY NASAL BID, #1 BOTTLE TO EACH NOSTRIL Prov:YANI CHOWDHURY PA-C 01/15/17 Losartan Potassium* (Losartan Potassium*) 100 Mg Tablet, 100 MG PO DAILY for 30 Days, TAB 2 Refills Prov:GURDEEPSHANTAL. 12/05/16 Insulin Aspart* (Novolog Insulin Pen*) 100 Unit/Ml Soln, 6 UNIT SC WITH MEALS for 30 Days, EA 2 Refills Prov:SHANTAL MACKENZIE . 12/05/16 Insulin Glargine* (Lantus*) 100 Unit/Ml Soln, 40 UNIT SC DAILY@08 for 30 Days, 2 Refills Prov:GURDEEPSHANTAL. 12/05/16 Polyethylene Glycol* (Miralax*) 17 Gm Powd.pack, 17 GM PO DAILY for 30 Days Prov:SHANTAL MACKENZIE . 12/05/16 Aspirin* (Aspirin* EC) 81 Mg Tablet.dr, 81 MG PO DAILY for 30 Days, TAB 2 Refills Prov:SHANTAL MACKENZIE M. 12/05/16 Metoprolol Succinate* (Toprol XL*) 50 Mg Tab.er.24h, 50 MG PO DAILY, #30 TAB 2 Refills Prov:SHANTAL MACKENZIE. 12/05/16 Glyburide* (Glyburide*) 5 Mg Tablet, 5 MG PO WITH BREAKFAST DINNE, #60 TAB 2 Refills Prov:SHANTAL MACKENZIE. 12/05/16 Metformin Hcl* (Metformin Hcl*) 1,000 Mg Tablet, 1000 MG PO BID WITH MEALS for 30 Days, TAB 2 Refills Prov:SHANTAL MACKENZIE. 12/05/16 Reported Medications Omeprazole* (Omeprazole*) 20 Mg Capsule.dr, 20 MG PO DAILY, CAP 10/16/14 Allergies Allergies: Coded Allergies: morphine (Verified Allergy, Unknown, 10/17/16) n/v codeine (Verified Adverse Reaction, Mild, vomiting, 10/17/16) PMhx/Soc History of Surgery: Yes (tubal ligation, ) Anesthesia Reaction: No Hx Neurological Disorder: No Hx Respiratory Disorders: No Hx Cardiac Disorders: Yes (HTN, HIGH CHOLESTEROL) Hx Psychiatric Problems: No Hx Miscellaneous Medical Probl: Yes (dm) Hx Alcohol Use: No Hx Substance Use: No Hx Tobacco Use: No Smoking Status: Never smoker Physical Exam Vitals Vital Signs Date Time Temp Pulse Resp B/P Pulse Ox O2 Delivery O2 Flow Rate FiO2 01/15/17 14:03 73 180/79 01/15/17 12:42 97.8 77 20 185/78 98 Physical Exam General: Well-developed, well-nourished. The patient appears in no acute distress. HEENT: Head is normocephalic, atraumatic. No scleral icterus. Pupils are equal , round, and reactive. Oral mucous membranes are moist. Mild pharyngeal erythema. Positive for rhinorrhea Neck: Supple. Nontender. No masses or meningismus. Lungs: Clear to auscultation. Normal air movement. Heart: Regular rate and rhythm. S1 and S2 are normal. No murmurs, gallops, or rubs. Abdomen: Soft, nontender, nondistended. Bowel sounds are normoactive. Extremities: No clubbing or cyanosis. Normal pulses. Moving extremities x 4. No weakness. Neurologic: Alert and oriented 3. No focal deficits. Skin: Normal turgor. No rash or lesions. Procedures/MDM The patient is a 66-year-old for who comes in with an acute upper respiratory infection, presumed viral. The patient has a differential diagnosis of a viral upper respiratory infection, bacterial upper respiratory infection, bronchitis, pneumonia, pharyngitis, laryngitis, epiglottitis, croup, pneumonia. Patient has a normal pulmonary examination, clear breath sounds, normal pulse oximetry, with no corrective measures needed at this time. Fluids, rest, antipyretics were encouraged. Patient's blood pressure was elevated (>120/80) but appears stable without evidence of hypertension emergency or urgency. The patient was counseled about the risks of hypertension and urged to pursue outpatient monitoring and therapy within a week with their primary care physician. Departure Diagnosis: Primary Impression: URI, acute Condition: Good Patient Instructions: Viral Syndrome (Adult) Additional Instructions: Llame al doctor MAANA y siddhartha waylon ZURI PARA DENTRO DE 1-2 FRANCO.Dgale a la secretaria que nosotros le instruimos hacer esta zuri.Avise o llame si [place] condicin se empeora antes de la zuri. Regresa aqui si peor o no mejor. YANI CHOWDHURY PA-C January 15, 2017 14:23
[2017-01-15 15:09] VITALS: BP 157/74; PULSE 71; RESP 20; TEMP 97.8
== END 2017-01-15 15:10 | disposition home or self-care (01) ==
LOC: FTE 12:29
DX: J06.9 Acute upper respiratory infection, unspecified (principal); I10 Essential (primary) hypertension; E11.9 Type 2 diabetes mellitus without complications; Z79.4 Long term (current) use of insulin; Z79.82 Long term (current) use of aspirin; Z79.84 Long term (current) use of oral hypoglycemic drugs
CPT/HCPCS: 99283

== ENCOUNTER 2017-05-08 16:32 | Emergency (ER) | payer MEDICARE, OTHER ==
[~2017-05-08] VITALS: Ht 157.5 cm; Wt 65.5 kg
[~2017-05-08 16:32] MED LIST changes: +CETI10CA PO; +D-ME473S18 PO; +FLUT9.9S NASAL
[2017-05-08 16:39] VITALS: Ht 157.5 cm; Wt 65.5 kg
[2017-05-08] MEDS ORDERED: SODI126M NASAL (18:26)
[2017-05-08] MEDS ORDERED: IBUP-1542 PO (18:26)
[2017-05-08 18:35] VITALS: BP 161/65; PULSE 74; RESP 16; TEMP 98.2
--- NOTE | 2017-05-08 20:34 | ERD ---
ER Documentation Chief Complaint Date/Time DATE: 05/08/17 TIME: 20:25 Chief Complaint NASAL CONGESTION,SOB,HEADACHE HPI 67-year-old female complaining of nasal congestion and sinus pain 1 week. States that she read because of congestion. She reports slight cough, worse at night. She is also complaining of left ear pain, and headache. Patient stated that she was given Claritin in the past, but had not helped. Denies fever or chills. Denies purulent nasal drainage. ROS All systems reviewed and are negative except as per history of present illness. Medications Home Meds Active Scripts Ibuprofen* (Motrin*) 600 Mg Tab, 600 MG PO Q6H Y for PAIN AND OR ELEVATED TEMP, #30 TAB Prov:SAIRA CATALAN BUFFER CHROME 05/08/17 Sodium Chloride (Saline Nasal Mist) 126 Ml Mist, 2 SPRAY NASAL Q2H Y for NASAL CONGESTION, #1 BOTTLE Prov:SAIRA CATALAN NP 05/08/17 Dextromethorphan Hb-Promethazine Hcl (Promethazine DM Syrup) 473 Ml Syrup, 5 ML PO Q6H Y for COUGH, #4 OZ Prov:YANI CHOWDHURY PA-C 01/15/17 Cetirizine Hcl* (Zyrtec*) 10 Mg Capsule, 10 MG PO DAILY, #10 TAB.CHEW Prov:YANI CHOWDHURY PA-C 01/15/17 Fluticasone Propionate (Flonase Allergy Relief) 9.9 Ml [place].susp, 1 SPRAY NASAL BID, #1 BOTTLE TO EACH NOSTRIL Prov:YANI CHOWDHURY PA-C 01/15/17 Losartan Potassium* (Losartan Potassium*) 100 Mg Tablet, 100 MG PO DAILY for 30 Days, TAB 2 Refills Prov:SHANTAL MACKENZIE 12/05/16 Insulin Aspart* (Novolog Insulin Pen*) 100 Unit/Ml Soln, 6 UNIT SC WITH MEALS for 30 Days, EA 2 Refills Prov:SHANTAL MACKENZIE 12/05/16 Insulin Glargine* (Lantus*) 100 Unit/Ml Soln, 40 UNIT SC DAILY@08 for 30 Days, 2 Refills Prov:SHANTAL MACKENZIE 12/05/16 Polyethylene Glycol* (Miralax*) 17 Gm Powd.pack, 17 GM PO DAILY for 30 Days Prov:SHANTAL MACKENZIE. 12/05/16 Aspirin* (Aspirin* EC) 81 Mg Tablet.dr, 81 MG PO DAILY for 30 Days, TAB 2 Refills Prov:SHANTAL MACKENZIE. 12/05/16 Metoprolol Succinate* (Toprol XL*) 50 Mg Tab.er.24h, 50 MG PO DAILY, #30 TAB 2 Refills Prov:SHANTAL MACKENZIE. 12/05/16 Glyburide* (Glyburide*) 5 Mg Tablet, 5 MG PO WITH BREAKFAST DINNE, #60 TAB 2 Refills Prov:SHANTAL MACKENZIE. 12/05/16 Metformin Hcl* (Metformin Hcl*) 1,000 Mg Tablet, 1000 MG PO BID WITH MEALS for 30 Days, TAB 2 Refills Prov:SHANTAL MACKENZIE. 12/05/16 Reported Medications Omeprazole* (Omeprazole*) 20 Mg Capsule.dr, 20 MG PO DAILY, CAP 10/16/14 Allergies Allergies: Coded Allergies: morphine (Verified Allergy, Unknown, 10/17/16) n/v codeine (Verified Adverse Reaction, Mild, vomiting, 10/17/16) PMhx/Soc History of Surgery: Yes (tubal ligation, ) Anesthesia Reaction: No Hx Neurological Disorder: No Hx Respiratory Disorders: No Hx Cardiac Disorders: Yes (HTN, HIGH CHOLESTEROL) Hx Psychiatric Problems: No Hx Miscellaneous Medical Probl: Yes (dm) Hx Alcohol Use: No Hx Substance Use: No Hx Tobacco Use: No Smoking Status: Never smoker Physical Exam Vitals Vital Signs Date Time Temp Pulse Resp B/P Pulse Ox O2 Delivery O2 Flow Rate FiO2 05/08/17 18:35 98.2 74 16 161/65 99 Room Air 05/08/17 16:39 99.2 82 18 178/76 98 Physical Exam General: Well-developed, well-nourished, conscious and coherent, in no distress Skin: Warm and dry without rash, good texture and turgor Head: Normocephalic without evidence of trauma Eyes: Sclera and conjunctivae normal; pupils equal, round, and reactive to light; extraocular movements are intact Ears: Canals are patent. Tympanic membranes are clear Nose/Face: Clear rhinorrhea, bilateral maxillary sinus tender to percussion Mouth/throat: Mucous membranes are moist. Posterior pharynx clear without erythema or exudates Neck: Supple without meningismus or adenopathy. Carotids are equal. Trachea midline. No bruits or JVD Chest: Normal AP diameter. Good expansion without retractions. Nontender. Lungs are clear to auscultate bilaterally with good tidal volume Heart: Regular rate and rhythm. No murmur, rub, or gallops heard Extremities: Full range of motion. Good strength bilaterally. No clubbing, cyanosis, or edema. Peripheral pulses are intact. Sensation intact Neuro: Alert and oriented 4, GCS 15. Cranial nerves grossly intact. Motor and sensory exams nonfocal. Moves all extremities. Speech clear. Gait normal Procedures/MDM Well-appearing 67-year-old female presented ED with nasal congestion and sinus pain 1 week. Patient is noted to be sniffing constantly during exam. Likely her sinus pain is due to acute sinusitis. I doubt it is a infectious sinusitis that requires antibiotic treatment. Patient educated on allow her rhinorrhea to drain out rather than sucking in. As for her nasal congestion and rhinorrhea, it is either from a viral URI, or from allergic rhinitis. No sign of pneumonia, bronchitis. Patient appears well, stable for discharge and outpatient management. Medical decision making shared with patient and family. Education provided to patient and family. Patient and family expressed understanding of the plan. Medications on discharge: Saline nasal spray. Follow-up: Primary care provider in 2-3 days or return to ED if worse. Disclaimer: Inadvertent spelling and grammatical errors are likely due to EHR/ dictation software use and do not reflect on the overall quality of patient care. Also, please note that the electronic time recorded on this note does not necessarily reflect the actual time of the patient encounter. Departure Diagnosis: Primary Impression: Nasal congestion Additional Impression: Sinusitis Condition: Stable Patient Instructions: Sinus Headaches, Self-Care for Sinusitis Additional Instructions: Llame al doctor MAANA y siddhartha waylon ZURI PARA DENTRO DE 2-3 FRANCO.Dgale a la secretaria que nosotros le instruimos hacer esta zuri.Avise o llame si [place] condicin se empeora antes de la zuri. Regresa aqui si peor o no mejor. SAIRA CATALAN NP May 08, 2017 20:34
== END 2017-05-08 18:40 | disposition home or self-care (01) ==
LOC: FTE 16:32
DX: R09.81 Nasal congestion (principal); J32.9 Chronic sinusitis, unspecified; I10 Essential (primary) hypertension; E11.9 Type 2 diabetes mellitus without complications; Z79.4 Long term (current) use of insulin; Z79.82 Long term (current) use of aspirin; Z79.84 Long term (current) use of oral hypoglycemic drugs
CPT/HCPCS: 99283

== ENCOUNTER 2017-07-16 12:12 | Emergency (ER) | payer MEDICARE, OTHER ==
[~2017-07-16] VITALS: Ht 127 cm; Wt 65.9 kg
[~2017-07-16 12:12] MED LIST changes: +ACET500C5 PO; +CEPH-443 PO; +IBUP-1542 PO; +METO-319 PO; -METO50TA16 PO; +SODI126M NASAL
[2017-07-16 12:13] VITALS: Ht 127 cm; Wt 65.9 kg
[2017-07-16 14:16] LABS: ADD UMIC YES; UR ASCORBIC ACID NEGATIVE (NEGATIVE); UR BACTERIA FEW /HPF (NONE SEEN); UR BILIRUBIN (Dip) NEGATIVE (NEGATIVE); UR BLOOD (Dip) NEGATIVE (NEGATIVE); UR CLARITY CLOUDY (CLEAR); UR COLOR YELLOW (YELLOW); UR GLUCOSE (Dip) 3+ mg/dL (NEGATIVE); UR KETONES (Dip) NEGATIVE (NEGATIVE); UR LEUKOCYTE ESTERASE (Dip) 2+ Leu/ul (NEGATIVE); UR NITRITE (Dip) NEGATIVE (NEGATIVE); UR RBC 2 /HPF (0-5); UR SPECIFIC GRAVITY (Dip) 1.014 (1.003-1.030); UR TOTAL PROTEIN (Dip) NEGATIVE (NEGATIVE); UR UROBILINOGEN (Dip) NEGATIVE (NEGATIVE)
--- NOTE | 2017-07-16 14:26 | ERD ---
ER Documentation Chief Complaint Chief Complaint LOWER BACL/FLANK PAIN, PAINFUL URINATION HPI This is a 67-year-old female who presents to the emergency room for evaluation of painful urination. The patient states that she is a painful urination for the past 3 days and feels that she has to use the bathroom more frequently. She denies any fevers or chills associated with this. The patient denies any flank pain associated with this burning urination and came to the emergency room for evaluation. She also states that she has a history of reflux disease and is prescribed omeprazole however she ran out of her omeprazole. ROS All systems reviewed and are negative except as per history of present illness. Medications Home Meds Active Scripts Acetaminophen* (Tylophen*) 500 Mg Capsule, 1 CAP PO Q6H Y for PAIN AND OR ELEVATED TEMP, #20 CAP Prov:MOE NGUYEN PA-C 05/20/17 Cephalexin* (Keflex*) 500 Mg Capsule, 500 MG PO TID for 10 Days, CAP Prov:MOE NGUYEN PA-C 05/20/17 Ibuprofen* (Motrin*) 600 Mg Tab, 600 MG PO Q6H Y for PAIN AND OR ELEVATED TEMP, #30 TAB Prov:SAIRA CATALAN. SENIOR MARKETING SPECIALIST 05/08/17 Sodium Chloride (Saline Nasal Mist) 126 Ml Mist, 2 SPRAY NASAL Q2H Y for NASAL CONGESTION, #1 BOTTLE Prov:SAIRA CATALAN. SENIOR MARKETING SPECIALIST 05/08/17 Dextromethorphan Hb-Promethazine Hcl (Promethazine DM Syrup) 473 Ml Syrup, 5 ML PO Q6H Y for COUGH, #4 OZ Prov:YANI CHOWDHURY PA-C 01/15/17 Cetirizine Hcl* (Zyrtec*) 10 Mg Capsule, 10 MG PO DAILY, #10 TAB.CHEW Prov:YANI CHOWDHURY PA-C 01/15/17 Fluticasone Propionate (Flonase Allergy Relief) 9.9 Ml [place].susp, 1 SPRAY NASAL BID, #1 BOTTLE TO EACH NOSTRIL Prov:YANI CHOWDHURY PA-C 01/15/17 Losartan Potassium* (Losartan Potassium*) 100 Mg Tablet, 100 MG PO DAILY for 30 Days, TAB 2 Refills Prov:SHANTAL MACKENZIE 12/05/16 Insulin Aspart* (Novolog Insulin Pen*) 100 Unit/Ml Soln, 6 UNIT SC WITH MEALS for 30 Days, EA 2 Refills Prov:SHANTAL MACKENZIE. 12/05/16 Insulin Glargine* (Lantus*) 100 Unit/Ml Soln, 40 UNIT SC DAILY@08 for 30 Days, 2 Refills Prov:SHANTAL MACKENZIE. 12/05/16 Polyethylene Glycol* (Miralax*) 17 Gm Powd.pack, 17 GM PO DAILY for 30 Days Prov:SHANTAL MACKENZIE. 12/05/16 Aspirin* (Aspirin* EC) 81 Mg Tablet.dr, 81 MG PO DAILY for 30 Days, TAB 2 Refills Prov:SHANTAL MACKENZIE . 12/05/16 Metoprolol Succinate* (Toprol XL*) 50 Mg Tab.er.24h, 50 MG PO DAILY, #30 TAB 2 Refills Prov:SHANTAL MACKENZIE. 12/05/16 Glyburide* (Glyburide*) 5 Mg Tablet, 5 MG PO WITH BREAKFAST DINNE, #60 TAB 2 Refills Prov:SHANTAL MACKENZIE . 12/05/16 Metformin Hcl* (Metformin Hcl*) 1,000 Mg Tablet, 1000 MG PO BID WITH MEALS for 30 Days, TAB 2 Refills Prov:SHANTAL MACKENZIE. 12/05/16 Reported Medications Omeprazole* (Omeprazole*) 20 Mg Capsule.dr, 20 MG PO DAILY, CAP 10/16/14 Allergies Allergies: Coded Allergies: morphine (Verified Allergy, Unknown, 10/17/16) n/v codeine (Verified Adverse Reaction, Mild, vomiting, 10/17/16) PMhx/Soc History of Surgery: Yes (tubal ligation, ) Anesthesia Reaction: No Hx Neurological Disorder: No Hx Respiratory Disorders: No Hx Cardiac Disorders: Yes (HTN, HIGH CHOLESTEROL) Hx Psychiatric Problems: No Hx Miscellaneous Medical Probl: Yes (dm) Hx Alcohol Use: No Hx Substance Use: No Hx Tobacco Use: No Smoking Status: Never smoker Physical Exam Vitals Vital Signs Date Time Temp Pulse Resp B/P Pulse Ox O2 Delivery O2 Flow Rate FiO2 07/16/17 12:13 98.2 74 16 141/65 98 Physical Exam Const: No acute distress Head: Atraumatic Eyes: Normal Conjunctiva ENT: Normal External Ears, Nose and Mouth. Neck: Full range of motion..~ No meningismus. Resp: Clear to auscultation bilaterally Cardio: Regular rate and rhythm, no murmurs Abd: Soft, non tender, non distended. Normal bowel sounds, no CVAT Skin: No petechiae or rashes Back: No midline or flank tenderness Ext: No cyanosis, or edema Neur: Awake and alert Psych: Normal Mood and Affect Results 24 hrs Laboratory Tests Test 07/16/17 13:30 Urine Color YELLOW Urine Clarity CLOUDY Urine pH 5.0 Urine Specific [place] 1.014 Urine Ketones NEGATIVEmg/dL Urine Nitrite NEGATIVEmg/dL Urine Bilirubin NEGATIVEmg/dL Urine Urobilinogen NEGATIVEmg/dL Urine Leukocyte Esterase 2+Brenda/ul Urine Microscopic RBC 2/HPF Urine Microscopic WBC 180/HPF Urine Bacteria FEW/HPF Urine Hemoglobin NEGATIVEmg/dL Urine Glucose 3+mg/dL Urine Total Protein NEGATIVEmg/dl Current Medications Medications (Trade) Dose Ordered Sig/Cuca Route PRN Reason Start Time Stop Time Status Last Admin Dose Admin Phenazopyridine HCl (Pyridium) 100 mg ONCE ONCE PO 07/16/17 14:30 07/16/17 14:31 Ciprofloxacin (Cipro) 500 mg ONCE ONCE PO 07/16/17 14:30 07/16/17 14:31 Procedures/MDM This 67-year-old female presents to the ER for evaluation of painful urination and urinary frequency. This patient was hemodynamically stable on my examination. She was afebrile, no acute distress, no CVAT. No clinical signs of pyelonephritis at this time. She is not vomiting and has no chills. Urinalysis does reveal urine infection. Urine culture was obtained. The patient was started on ciprofloxacin, Pyridium in the emergency room. She will be discharged home with a prescription for ciprofloxacin, Pyridium, and omeprazole for gastritis. She was advised she can return to the ER any point for reevaluation and she verbalized understanding Departure Diagnosis: Primary Impression: Acute cystitis Additional Impression: Acute gastritis Condition: Stable ADRIANA STEELE DO Jul 16, 2017 14:26
[2017-07-16] MEDS ORDERED: CIPR500T4 PO (14:27)
[2017-07-16] MEDS ORDERED: OMEP40CA6 PO (14:27)
[2017-07-16] MEDS ORDERED: PHEN-537 PO (14:27)
[2017-07-16] MEDS ORDERED: CIPROFLOXACIN 500 MG TAB PO ONE (14:30)
[2017-07-16] MEDS ORDERED: RANITIDINE 150 MG TAB PO ONE (14:30)
[2017-07-16] MEDS ORDERED: PHENAZOPYRIDINE 100 MG TAB PO ONE (14:30)
== END 2017-07-16 15:47 | disposition home or self-care (01) ==
LOC: E/R 12:12
DX: N30.00 Acute cystitis without hematuria (principal); K29.00 Acute gastritis without bleeding; I10 Essential (primary) hypertension; E11.9 Type 2 diabetes mellitus without complications; Z79.4 Long term (current) use of insulin; Z79.84 Long term (current) use of oral hypoglycemic drugs; Z79.82 Long term (current) use of aspirin
CPT/HCPCS: 81001; 87086; 99283

== ENCOUNTER 2017-08-05 10:22 | Emergency (ER) | payer MEDICARE, OTHER ==
[~2017-08-05] VITALS: Wt 64.1 kg
[~2017-08-05 10:22] MED LIST changes: -ACET500C5 PO; -ASPI-664 PO; -CEPH-443 PO; -CETI10CA PO; +CIPR500T4 PO; +OMEP40CA6 PO; +PHEN-537 PO
--- NOTE | 2017-08-05 11:20 | ERD ---
ER Documentation Chief Complaint Chief Complaint BILAT LEG CRAMPS AFTER DRINKING TEA LAST NIGHT HPI Patient is a 67-year-old female who presents with bilateral lower extremity pain and cramping that began last night. She denies any trauma. She is ambulatory. No chest pain or recent travel. No unilateral swelling. No fevers. After the pain began she drink tea but it did not help. She has not taken any other medications. Denies any paresthesias. ROS All systems reviewed and are negative except as per history of present illness. Medications Home Meds Active Scripts Hydrocodone/Acetaminophen ([place] 5-325 Tablet) 1 Each Tablet, 1 TAB PO Q6H Y for PAIN, #20 TAB Prov:ALANA GLYNN PA-C 08/05/17 Ibuprofen* (Motrin*) 600 Mg Tab, 600 MG PO Q6, #30 TAB Prov:ALANA GLYNN PA-C 08/05/17 Omeprazole* (Omeprazole*) 40 Mg Capsule.dr, 40 MG PO DAILY, #30 CAP Prov:ADRIANA STEELE DO 07/16/17 Phenazopyridine Hcl* (Pyridium*) 100 Mg Tab, 100 MG PO TID, #8 TAB Prov:ADRIANA STEELE DO 07/16/17 Ciprofloxacin Hcl* (Ciprofloxacin Hcl*) 500 Mg Tablet, 500 MG PO BID, #14 TAB Prov:ADRIANA STEELE DO 07/16/17 Ibuprofen* (Motrin*) 600 Mg Tab, 600 MG PO Q6H Y for PAIN AND OR ELEVATED TEMP, #30 TAB Prov:SAIRA CATALAN NP 05/08/17 Sodium Chloride (Saline Nasal Mist) 126 Ml Mist, 2 SPRAY NASAL Q2H Y for NASAL CONGESTION, #1 BOTTLE Prov:SAIRA CATALAN NP 05/08/17 Dextromethorphan Hb-Promethazine Hcl (Promethazine DM Syrup) 473 Ml Syrup, 5 ML PO Q6H Y for COUGH, #4 OZ Prov:YANI CHOWDHURY PA-C 01/15/17 Fluticasone Propionate (Flonase Allergy Relief) 9.9 Ml [place].susp, 1 SPRAY NASAL BID, #1 BOTTLE TO EACH NOSTRIL Prov:YANI CHOWDHURY PA-C 01/15/17 Losartan Potassium* (Losartan Potassium*) 100 Mg Tablet, 100 MG PO DAILY for 30 Days, TAB 2 Refills Prov:SHANTAL MACKENZIE 12/05/16 Insulin Aspart* (Novolog Insulin Pen*) 100 Unit/Ml Soln, 6 UNIT SC WITH MEALS for 30 Days, EA 2 Refills Prov:SHANTAL MACKENZIE. 12/05/16 Insulin Glargine* (Lantus*) 100 Unit/Ml Soln, 40 UNIT SC DAILY@08 for 30 Days, 2 Refills Prov:SHANTAL MACKENZIE 12/05/16 Polyethylene Glycol* (Miralax*) 17 Gm Powd.pack, 17 GM PO DAILY for 30 Days Prov:SHANTAL MACKENZIE. 12/05/16 Metoprolol Succinate* (Toprol XL*) 50 Mg Tab.er.24h, 50 MG PO DAILY, #30 TAB 2 Refills Prov:SHANTAL MACKENZIE. 12/05/16 Glyburide* (Glyburide*) 5 Mg Tablet, 5 MG PO WITH BREAKFAST DINNE, #60 TAB 2 Refills Prov:SHANTAL MACKENZIE. 12/05/16 Metformin Hcl* (Metformin Hcl*) 1,000 Mg Tablet, 1000 MG PO BID WITH MEALS for 30 Days, TAB 2 Refills Prov:SHANTAL MACKENZIE. 12/05/16 Reported Medications Omeprazole* (Omeprazole*) 20 Mg Capsule.dr, 20 MG PO DAILY, CAP 10/16/14 Allergies Allergies: Coded Allergies: morphine (Verified Allergy, Unknown, 08/05/17) n/v codeine (Verified Adverse Reaction, Mild, vomiting, 08/05/17) PMhx/Soc History of Surgery: Yes (tubal ligation, ) Anesthesia Reaction: No Hx Neurological Disorder: No Hx Respiratory Disorders: No Hx Cardiac Disorders: Yes (HTN, HIGH CHOLESTEROL) Hx Psychiatric Problems: No Hx Miscellaneous Medical Probl: Yes (dm) Hx Alcohol Use: No Hx Substance Use: No Hx Tobacco Use: No FmHx Family History: diabetes Physical Exam Vitals Vital Signs Date Time Temp Pulse Resp B/P Pulse Ox O2 Delivery O2 Flow Rate FiO2 08/05/17 10:27 97.9 74 18 122/61 98 Physical Exam INITIAL VITAL SIGNS: Reviewed by me GENERAL: Awake, alert and oriented x 4, well appearing, nontoxic, speaking in full sentences. No acute distress HEAD: Atraumatic NECK: Supple. No masses. Full range of motion. No meningismus. No midline tenderness. RESPIRATORY: Clear to auscultation bilaterally. Symmetric chest wall rise. No wheezing or rales. No accessory muscle use. CV: Regular rate and rhythm. No murmurs, rubs, or gallops. EXTREMITIES: Bilateral lower extremities are non-erythematous nonedematous, no induration, no warmth, sensation to light touch is intact throughout, no tenderness or redness or swelling behind the calf bilaterally Procedures/MDM 67-year-old female presents with bilateral lower extremity cramping and pain Patients is alert, oriented, well appearing, and in no distress with normal vital signs. There is no fever, tachycardia, or tachypnea. She is well- appearing in no distress. Examination is not concerning for infection, cellulitis, or DVT. This is most likely musculoskeletal. She has been seen here before for similar symptoms. Accu-Chek was performed, 226. She is discharged with ibuprofen and tramadol. Patient counseled regarding my diagnostic impression and care plan. Prior to discharge all questions answered. Pt agrees with treatment plan and understands strict return precautions. Pt is instructed to follow up with primary care provider within 24-48 hours. Precautionary instructions provided including instructions to return to the ER if not improving or for any worsening or changing symptoms or concerns. Departure Diagnosis: Primary Impression: Bilateral leg pain Condition: Stable ALANA GLYNN PA-C Aug 05, 2017 11:20
[2017-08-05] MEDS ORDERED: IBUP-1542 PO (11:42)
[2017-08-05] MEDS ORDERED: HYDR-906 PO (11:42)
[2017-08-05] MEDS ORDERED: TRAM50TA2 PO (11:43)
== END 2017-08-05 11:52 | disposition home or self-care (01) ==
LOC: FTE 10:22
DX: M79.605 Pain in left leg (principal); M79.604 Pain in right leg; E11.9 Type 2 diabetes mellitus without complications; I10 Essential (primary) hypertension; Z79.4 Long term (current) use of insulin; Z79.84 Long term (current) use of oral hypoglycemic drugs
CPT/HCPCS: 82962; 99284

== ENCOUNTER 2017-09-10 12:24 | Emergency (ER) | END 2017-09-10 15:42 | disposition home or self-care (01) ==

== ENCOUNTER 2017-10-29 13:15 | Inpatient (IN) | END 2017-11-07 20:48 | disposition home or self-care (01) | DRG 166 ==

== ENCOUNTER 2018-01-28 14:42 | Emergency (ER) | END 2018-01-28 17:33 | disposition home or self-care (01) ==

== ENCOUNTER 2018-02-05 13:35 | Emergency (ER) | END 2018-02-05 14:40 | disposition home or self-care (01) ==

== ENCOUNTER 2018-02-09 05:40 | Emergency (ER) | END 2018-02-09 13:43 | disposition home or self-care (01) ==

== ENCOUNTER 2018-04-08 14:42 | Emergency (ER) | END 2018-04-08 16:30 | disposition home or self-care (01) ==

== ENCOUNTER 2018-05-20 19:51 | Emergency (ER) | END 2018-05-21 02:00 | disposition home or self-care (01) ==

== ENCOUNTER 2018-08-16 14:45 | Emergency (ER) | END 2018-08-16 17:43 | disposition home or self-care (01) ==

== ENCOUNTER 2018-08-22 20:05 | Emergency (ER) | END 2018-08-22 22:55 | disposition home or self-care (01) ==

== ENCOUNTER 2018-09-26 10:33 | Emergency (ER) | payer MEDICARE, OTHER ==
[~2018-09-26] VITALS: Wt 65.0 kg
[~2018-09-26 10:33] MED LIST changes: +AMIT10TA6 PO; +AMOX500C2 PO; +ATOR40TA68 PO; +BENZ-6 PO; -CIPR500T4 PO; -D-ME473S18 PO; +ERGO500013 PO; -FLUT9.9S NASAL; +GABA300C16 PO; +GLIP10TA14 PO; -GLYB5TAB3 PO; -IBUP-1542 PO; +IBUP-1561 PO; +IPRA30SP NS; -LANT3I SC; -LOSA100T7 PO; +LOSA25TA12 PO; -METF1000 PO; +METF500T24 PO; -METO-319 PO; +METO-429 PO; +NITR-58 PO; -NOVO3I SC; +NOVO7030 SC; -OMEP40CA6 PO; -PHEN-537 PO; -POLY17PO6 PO; -SODI126M NASAL; +SULF1TAB31 PO; +TRAM50TA2 PO
[2018-09-26] MEDS ORDERED: VALS80TA2 PO (11:51)
[2018-09-26] MEDS ORDERED: NITR-58 PO (11:51)
--- NOTE | 2018-09-26 11:53 | ERD ---
ER Documentation Chief Complaint Chief Complaint DYSURIA X 3 DAYS HPI This is a 68-year-old female who is here for dysuria for the past 3-4 days. She says she has some burning when she urinates with a foul odor. No back pain or fever. There is some suprapubic pain at the end of the void stream. She also is out of her blood pressure medication valsartan and is asking for refill. ROS All systems reviewed and are negative except as per history of present illness. Medications Home Meds Active Scripts Nitrofurantoin Monohyd Macrocr* (Macrobid*) 100 Mg Capsr, 100 MG PO BID for 7 Days, CAP Prov:LEKKOS,APOSTOLOS A. DO 09/26/18 Valsartan* (Diovan*) 80 Mg Tablet, 80 MG PO DAILY, #30 TAB Prov:LEKKOS,APOSTOLOS A. DO 09/26/18 Ibuprofen* (Motrin*) 400 Mg Tab, 400 MG PO Q6, #20 TAB Prov:BHAVIK RICE MD 08/22/18 Tramadol HCl (Tramadol HCl) 50 Mg Tablet, 50 MG PO Q4 PRN for PAIN, #15 TAB Prov:BHAVIK RICE MD 08/22/18 Reported Medications Ipratropium [place] (Ipratropium [place]) 30 Ml [place], 30 ML NS DAILY, SPRAY 05/20/18 Amitriptyline Hcl* (Amitriptyline Hcl*) 10 Mg Tablet, 10 MG PO QHS, #30 TAB 05/20/18 Omeprazole* (Omeprazole*) 20 Mg Capsule.dr, 20 MG PO BID, #60 CAP 05/20/18 Losartan Potassium* (Losartan Potassium*) 25 Mg Tablet, 25 MG PO DAILY, TAB 05/20/18 Metformin Hcl* (Metformin Hcl*) 500 Mg Tablet, 500 MG PO WITH BREAKFAST DINNE, #60 TAB 05/20/18 Metoprolol Tartrate* (Lopressor*) 50 Mg Tab, 50 MG PO BID, #60 TAB 05/20/18 Atorvastatin* (Atorvastatin*) 40 Mg Tablet, 40 MG PO QHS, #30 TAB 05/20/18 Glipizide* (Glipizide*) 10 Mg Tablet, 10 MG PO BID, TAB 02/09/18 Insulin Isophan/Regular (Humulin 70/30) 100 Units/Ml Susp, 40 UNIT SC BID, EA 02/09/18 Ergocalciferol (Vitamin D2) (VITAMIN D2) 50,000 Unit Capsule, 99549 UNIT PO WEEKLY, CAP 02/09/18 Gabapentin* (Gabapentin*) 300 Mg Capsule, 300 MG PO TID, #90 CAP 10/27/17 Discontinued Scripts Ibuprofen* (Motrin*) 400 Mg Tab, 400 MG PO Q8, #15 TAB Prov:RAYSA GRAF MD 08/16/18 Benzonatate* (Tessalon Perle*) 100 Mg Capsule, 100 MG PO Q8H PRN for COUGH, #20 CAP Prov:RAYSA GRAF MD 08/16/18 Amoxicillin* (Amoxicillin*) 500 Mg Cap, 500 MG PO TID for 7 Days, CAP Prov:RAYSA GRAF MD 08/16/18 Sulfamethoxazole/Trimethoprim* (Bactrim Ds* Tablet) 1 Each Tablet, 1 TAB PO BID for 10 Days, #20 TAB Prov:KATIE CARRILLO DO 05/20/18 Nitrofurantoin Monohyd Macrocr* (Macrobid*) 100 Mg Capsr, 100 MG PO BID for 10 Days, CAP Prov:KATIE CARRILLO DO 05/20/18 Allergies Allergies: Coded Allergies: morphine (Verified Allergy, Unknown, 05/20/18) n/v codeine (Verified Adverse Reaction, Mild, vomiting, 05/20/18) PMhx/Soc History of Surgery: Yes ( AND TUBAL LIGATION, SHOULDER) Anesthesia Reaction: No Hx Neurological Disorder: No Hx Respiratory Disorders: No Hx Cardiac Disorders: Yes (HTN, HYPERLIPIDEMIA) Hx Psychiatric Problems: No Hx Miscellaneous Medical Probl: Yes (DM, GASTRITIS, STOMACH ULCER) Hx Alcohol Use: No Hx Substance Use: No Hx Tobacco Use: No Smoking Status: Never smoker FmHx Family History: No coronary disease Physical Exam Vitals Vital Signs Date Temp Pulse Resp B/P (MAP) Pulse Ox O2 O2 Flow FiO2 Time Delivery Rate 09/26/18 98.8 87 18 142/63 99 10:34 (89) Physical Exam Const: No acute distress Head: Atraumatic Eyes: Normal Conjunctiva ENT: Normal External Ears, Nose and Mouth. Neck: Full range of motion. No meningismus. Resp: Clear to auscultation bilaterally Cardio: Regular rate and rhythm, no murmurs Abd: Soft, non tender, non distended. Normal bowel sounds Skin: No petechiae or rashes Back: No midline or flank tenderness Ext: No cyanosis, or edema Neur: Awake and alert Psych: Normal Mood and Affect Results 24 hrs Laboratory Tests Test 09/26/18 11:01 Urine Color YELLOW Urine Clarity CLOUDY Urine pH 7.0 Urine Specific [place] 1.012 Urine Ketones NEGATIVE mg/dL Urine Nitrite NEGATIVE mg/dL Urine Bilirubin NEGATIVE mg/dL Urine Urobilinogen NEGATIVE mg/dL Urine Leukocyte Esterase 3+ Brenda/ul Urine Microscopic RBC 2 /HPF Urine Microscopic WBC 98 /HPF Urine Squamous Epithelial Cells MODERATE /HPF Urine Bacteria MODERATE /HPF Urine Hemoglobin NEGATIVE mg/dL Urine Glucose 3+ mg/dL Urine Total Protein NEGATIVE mg/dl Procedures/MDM Send off urine culture. Patient does have a urinary tract infection. Will discharge home with Macrobid Departure Diagnosis: Primary Impression: UTI (urinary tract infection) Urinary tract infection type: acute cystitis Hematuria presence: without hematuria Qualified Codes: N30.00 - Acute cystitis without hematuria Additional Impression: Dysuria Condition: Stable Patient Instructions: Dysuria, Understanding Urinary Tract Infections (UTIs) KAITE CARRILLO DO Sep 26, 2018 11:53
[2018-09-26 12:03] VITALS: BP 137/63; PULSE 68; RESP 18
== END 2018-09-26 12:03 | disposition home or self-care (01) ==
LOC: E/R 10:33
DX: N30.00 Acute cystitis without hematuria (principal); I10 Essential (primary) hypertension; E11.9 Type 2 diabetes mellitus without complications; Z79.4 Long term (current) use of insulin
CPT/HCPCS: 81001; 87086

== ENCOUNTER 2018-11-13 09:43 | Emergency (ER) | payer MEDICARE, OTHER ==
[~2018-11-13] VITALS: Wt 60.0 kg
[~2018-11-13 09:43] MED LIST changes: -AMOX500C2 PO; -BENZ-6 PO; -SULF1TAB31 PO; +VALS80TA2 PO
[2018-11-13] MEDS ORDERED: SOD CHLORIDE 0.9% 1,000 ML IV STA (10:55)
[2018-11-13] MEDS ORDERED: INSULIN LISPRO 100 UNIT/ML VIAL SC STA (11:49)
[2018-11-13] MEDS ORDERED: SOD CHLORIDE 0.9% 1,000 ML IV ONE (12:00)
[2018-11-13] MEDS ORDERED: CIPR500T4 PO (13:30)
[2018-11-13] MEDS ORDERED: D-ME473S2 PO (13:31)
[2018-11-13] MEDS ORDERED: BENZ-6 PO (13:31)
[2018-11-13 14:27] VITALS: BP 168/86; PULSE 66; RESP 17
--- NOTE | 2018-11-13 23:06 | ERD ---
ER Documentation Chief Complaint Chief Complaint COUGH, BODYACHES, PAIN WITH URINATION X1 WEEK HPI Patient is a 68-year-old female with a past medical history of DM type II, insulin-dependent, hypertension, presents the ER for multiple complaints. Patient states she has had a cough for the last week. Cough is dry in nature. Patient denies any chest pain or shortness of breath. Patient denies any hemoptysis. Patient denies any fevers or chills.. Patient also states she has had UTI symptoms for the last 3 days. Patient reports burning pain with urination. Patient admits to urinary frequency. She denies any hematuria. She denies any flank pain. Patient denies any abdominal pain, nausea, vomiting, diarrhea. Patient states she did check her blood sugar this morning it was noted to be 500. Patient states she takes insulin at nighttime. ROS All systems reviewed and are negative except as per history of present illness. Medications Home Meds Active Scripts Benzonatate* (Tessalon Perle*) 100 Mg Capsule, 100 MG PO Q8H PRN for COUGH, #20 CAP Prov:MOE NGUYEN PA-C 11/13/18 Dextromethorphan Hb-Promethazine Hcl* (Promethazine DM* Syrup) 473 Ml Syrup, 5 ML PO Q6 PRN for COUGH, #1 BOT Prov:MOE NGUYEN PA-C 11/13/18 Ciprofloxacin Hcl* (Ciprofloxacin Hcl*) 500 Mg Tablet, 500 MG PO BID for 10 Days, TAB Prov:MOE NGUYEN PA-C 11/13/18 Nitrofurantoin Monohyd Macrocr* (Macrobid*) 100 Mg Capsr, 100 MG PO BID for 7 Days, CAP Prov:KATIE CARRILLO DO 09/26/18 Valsartan* (Diovan*) 80 Mg Tablet, 80 MG PO DAILY, #30 TAB Prov:KATIE CARRILLO DO 09/26/18 Ibuprofen* (Motrin*) 400 Mg Tab, 400 MG PO Q6, #20 TAB Prov:BHAVIK RICE MD 08/22/18 Tramadol HCl (Tramadol HCl) 50 Mg Tablet, 50 MG PO Q4 PRN for PAIN, #15 TAB Prov:BHAVIK RICE MD 08/22/18 Reported Medications Ipratropium [place] (Ipratropium [place]) 30 Ml [place], 30 ML NS DAILY, SPRAY 05/20/18 Amitriptyline Hcl* (Amitriptyline Hcl*) 10 Mg Tablet, 10 MG PO QHS, #30 TAB 05/20/18 Omeprazole* (Omeprazole*) 20 Mg Capsule.dr, 20 MG PO BID, #60 CAP 05/20/18 Losartan Potassium* (Losartan Potassium*) 25 Mg Tablet, 25 MG PO DAILY, TAB 05/20/18 Metformin Hcl* (Metformin Hcl*) 500 Mg Tablet, 500 MG PO WITH BREAKFAST DINNE, #60 TAB 05/20/18 Metoprolol Tartrate* (Lopressor*) 50 Mg Tab, 50 MG PO BID, #60 TAB 05/20/18 Atorvastatin* (Atorvastatin*) 40 Mg Tablet, 40 MG PO QHS, #30 TAB 05/20/18 Glipizide* (Glipizide*) 10 Mg Tablet, 10 MG PO BID, TAB 02/09/18 Insulin Isophan/Regular (Humulin 70/30) 100 Units/Ml Susp, 40 UNIT SC BID, EA 02/09/18 Ergocalciferol (Vitamin D2) (VITAMIN D2) 50,000 Unit Capsule, 40196 UNIT PO WEEKLY, CAP 02/09/18 Gabapentin* (Gabapentin*) 300 Mg Capsule, 300 MG PO TID, #90 CAP 10/27/17 Allergies Allergies: Coded Allergies: morphine (Verified Allergy, Unknown, 05/20/18) n/v codeine (Verified Adverse Reaction, Mild, vomiting, 05/20/18) PMhx/Soc History of Surgery: Yes ( AND TUBAL LIGATION, SHOULDER) Anesthesia Reaction: No Hx Neurological Disorder: No Hx Respiratory Disorders: No Hx Cardiac Disorders: Yes (HTN, HYPERLIPIDEMIA) Hx Psychiatric Problems: No Hx Miscellaneous Medical Probl: Yes (DM, GASTRITIS, STOMACH ULCER) Hx Alcohol Use: No Hx Substance Use: No Hx Tobacco Use: No FmHx Family History: diabetes Physical Exam Vitals Vital Signs Date Temp Pulse Resp B/P (MAP) Pulse Ox O2 O2 Flow FiO2 Time Delivery Rate 11/13/18 98.2 66 17 168/86 100 Room Air 14:27 (113) 11/13/18 97.6 79 16 150/66 98 09:48 (94) Physical Exam GENERAL: Well-developed, well-nourished female. Appears in no acute distress. Speaking in full sentences HEAD: Normocephalic, atraumatic. No deformities or ecchymosis. EYE: Pupils equal, round, and reactive to light. EOMs intact. No conjunctival erythema. No eye discharge. ENT: External ear without any masses or tenderness. Auditory canals clear bilaterally. TM visualized bilaterally, non-erythematous, non-bulging. Nasal mucosa pink with no discharge. Oropharynx is pink without any tonsillar erythema or exudates. No uvula deviation. No kissing tonsils. NECK: Supple. No meningismus. Normal ROM of the neck. LUNG: Clear to auscultation bilaterally. No rhonchi, wheezing, rales or coarse breath sounds. HEART: Regular rate and rhythm. No murmurs, rubs or gallops. ABDOMEN: Soft, nontender, and nondistended. Positive bowel sounds in all four quadrants. No rebound tenderness, no guarding. (-) McBurney's point tenderness. No CVA tenderness. EXTREMITES: Equal pulses bilaterally. No peripheral clubbing, cyanosis or edema. No unilateral leg swelling. NEUROLOGIC: Alert and oriented to person, place and time. Moving all four extremities. 5/5 strength in all extremities. Normal speech. Steady gait. SKIN: Normal color. Warm and dry. No rashes or lesions. Result Diagram: 11/13/18 1109 11/13/18 1109 Results 24 hrs Laboratory Tests Test 11/13/18 10:50 11/13/18 10:51 11/13/18 11:09 11/13/18 11:20 Bedside Glucose 437 mg/dL Urine Color YELLOW Urine Clarity CLOUDY Urine pH 5.0 Urine Specific 1.010 [place] Urine Ketones NEGATIVE mg/dL Urine Nitrite NEGATIVE mg/dL Urine Bilirubin NEGATIVE mg/dL Urine NEGATIVE mg/dL Urobilinogen Urine Leukocyte 3+ Brenda/ul Esterase Urine 7 /HPF Microscopic RBC Urine > 182 /HPF Microscopic WBC Urine Bacteria FEW /HPF Urine 1+ mg/dL Hemoglobin Urine Glucose 3+ mg/dL Urine Total NEGATIVE mg/dl Protein White Blood 8.4 10^3/ul Count Red Blood Count 4.71 10^6/ul Hemoglobin 12.4 g/dl Hematocrit 37.5 % Mean 79.6 fl Corpuscular Volume Mean 26.3 pg Corpuscular Hemoglobin Mean 33.1 g/dl Corpuscular Hemoglobin Conc ent Red Cell 13.4 % Distribution Width Platelet Count 169 10^3/UL Mean Platelet 12.0 fl Volume Immature 0.500 % Granulocytes % Neutrophils % 68.6 % Lymphocytes % 24.1 % Monocytes % 3.9 % Eosinophils % 2.5 % Basophils % 0.4 % Nucleated Red 0.0 /100WBC Blood Cells % Immature 0.040 10^3/ul Granulocytes # Neutrophils # 5.8 10^3/ul Lymphocytes # 2.0 10^3/ul Monocytes # 0.3 10^3/ul Eosinophils # 0.2 10^3/ul Basophils # 0.0 10^3/ul Nucleated Red 0.0 10^3/ul Blood Cells # Sodium Level 137 mmol/L Potassium Level 4.3 mmol/L Chloride Level 97 mmol/L Carbon Dioxide 32 mmol/L Level Anion Gap 8 Blood Urea 16 mg/dl Nitrogen Creatinine 0.59 mg/dl Est Glomerular > 60 mL/min Filtrat Rate mL/min Glucose Level 471 mg/dl Calcium Level 10.0 mg/dl Total Bilirubin 0.6 mg/dl Direct 0.00 mg/dl Bilirubin Indirect 0.6 mg/dl Bilirubin Aspartate Amino 23 IU/L Transf (AST/SGO T) Alanine 32 IU/L Aminotransferas e (ALT/SGPT) Alkaline 143 IU/L Phosphatase Total Protein 7.3 g/dl Albumin 4.1 g/dl Globulin 3.20 g/dl Albumin/Globuli 1.28 n Ratio Blood Gas Blood venous Specimen Source Arterial Blood 11/13/2018 11:38 Date Drawn :45 AM Arterial Blood VENOUS LINE Gas Puncture Site Star Test N/A Venous Blood pH 7.365 Venous Blood 48.0 mmHG pCO2 (Temp Corrected ) Venous Blood 32.0 mmHG pO2 (Temp Corrected ) Venous Blood 26.8 mmol/L HCO3 Venous Blood 60.4 mmHG Oxygen Saturation Venous Blood 1.0 mmol/L Base Excess Venous Blood 11.7 g/dl Total Hemoglobin Venous Blood 60.2 % Oxyhemoglobin Venous Blood 0 % Methemoglobin Carboxyhemoglob 0.3 % in Blood Gas 37.0 C Temperature Blood Gas ROOM AIR Modality FiO2 21.0 % Blood Gas M.Steve Notified Whom Blood Gas 11/13/2018 11:53 Notified Time :45 AM Test 11/13/18 12:54 11/13/18 13:36 Bedside Glucose 352 mg/dL 257 mg/dL Current Medications Medications Dose Sig/Cuca Start Time Status Last (Trade) Ordered Route PRN Stop Time Admin Dose Reason Admin Sodium 1,000 ml @ Q1H STAT 11/13/18 DC 11/13/18 Chloride 1,000 mls/hr IV 10:55 11:12 11/13/18 11:54 Sodium 1,000 ml @ Q1H ONCE 11/13/18 DC 11/13/18 Chloride 1,000 mls/hr IV 12:00 13:02 11/13/18 12:59 Insulin 6 unit ONCE STAT 11/13/18 DC 11/13/18 Human SC 11:49 11:56 Lispro 11/13/18 11:51 (Humalog) Procedures/MDM ED COURSE: The patient was stable throughout ED course. I kept the patient and/or family informed of laboratory and diagnostic imaging results throughout the ED course. DIAGNOSTIC IMAGING: Read by radiologist. Patient: BEREKET FOURNIER : 1950 Age: 68 Sex: F MR #: [id number] DOS: 11/13/18 1044 Ordering MD: MOE NGUYEN PA-C Location: [facility] Room/Bed: PROCEDURE: XR Chest. CLINICAL INDICATION: Chest pain TECHNIQUE: Single frontal view of the chest was obtained. COMPARISON: 12/02/2016 FINDINGS: The heart is within normal limits. The thoracic aorta is calcified. There is no focal infiltrate. There is a slightly prominence of the right hilar region, likely secondary to vascular structures. There is no pleural effusion or pneumothorax. RPTAT: AA IMPRESSION: No acute disease. Calcified aorta consistent with atherosclerotic disease. Slightly prominent right hilum, likely secondary to vascular structures. .Ehsan Jansen MD, Date Time Electronically viewed and signed by .Ehsan Jansen MD, MD on 11/13/2018 11:50 .S/ CC: MOE NGUYEN PA-C [id number] PROCEDURES: None. MEDICAL DECISION MAKING: Patient is a 68-year-old female with a past medical history of hypertension, DM type II, insulin-dependent, presents to the ER for concerns of a cough times 1 week and UTI symptoms times 3 days. Patient also states her blood glucose levels noted to be 500 this morning. Patient denied any fevers. Patient denies any chest pain or shortness of breath. Vital signs were reviewed. Patient is afebrile. Patient was not hypoxic. Patient was hemodynamically stable. Accu-Chek reveals that patient's blood sugar was 437. IV line was established. Blood work was obtained. CBC showed no evidence of systemic infection or severe anemia. CMP showed no evidence of electrolyte abnormalities except for bicarb of 32, glucose of 471, severe acidosis, alkalosis, renal failure, or liver disease. VBG was obtained. Patient had to be 7.36. UA showed patient had no ketones, 3+ leukocyte esterase and greater than 182 WBCs. Urine was sent for culture. Low suspicion for DKA at this time. Patient's glucose levels are consistent wit h hyperglycemia. Patient was given IV fluids and Humalog 6 units SC here in the ER. Patient's blood sugar was noted to be downtrending and was 257 prior to discharge. Given that patient did have WBCs and leukocyte esterase, patient will be treated for concerns of UTI. Patient will be started on ciprofloxacin. Chest x-ray was unremarkable. No evidence of pneumonia. Patient's cough is likely viral. Patient will be given promethazine cough syrup as well as Tessalon Perles. At this time, patient's presentation is most consistent with hyperglycemia in the setting of uncontrolled DM type II, UTI and cough. Low suspicion for pneumonia, pneumothorax, pleural effusion, ACS, pericarditis, PE, TB, DKA, sepsis, pyelonephritis, nephrolithiasis, acute abdomen, severe electrolyte abnormalities. Patient was nontoxic, [id number] prior to discharge. The case was reviewed and discussed with Dr. Gomez who agrees with the plan of care including labs, treatment, and advanced imaging as appropriate. PRESCRIPTION: Ciprofloxacin, promethazine cough syrup, Tessalon Perles DISCHARGE: At this time, patient is stable for discharge and outpatient management. I have instructed the patient to follow-up with his/her primary care physician in 1-2 days. I have discussed with the patient the possibility of needing to see a specialist for further workup and imaging studies if symptoms persist. I have instructed the patient to promptly return to the ER for any new or worsening symptoms including increased pain, fever, nausea, vomiting, weakness or LOC. The patient and/or family expressed understanding of and agreement with this plan. All questions were answered. Home care instructions were provided. Patients blood pressure was elevated (>120/80) but appears stable without evidence of hypertensive emergency, hypertensive urgency or end-organ failure. I had discussion with the patient about the risks of hypertension. I have advised the patient to follow up with his/her primary care physician for outpatient monitoring and treatment for hypertension in 2-3 days. I have instructed the patient to return to the ER for any new or worsening symptoms including chest pain, shortness of breath, headache, blurred vision, confusion, nausea, vomiting or LOC. Patients random blood sugar level was elevated (>140), but appears stable without evidence of DKA or end organ failure. I had discussion with the patient about the risk of diabetes. I have advised the patient to follow up with his/her primary care physician for outpatient monitoring and treatment for elevated blood sugar levels in 2-3 days. I have instructed the patient to return to the ER for any new or worsening symptoms including chest pain, shortness of breath, headache, confusion, abdominal pain, nausea, vomiting, weakness or LOC. Disclaimer: Inadvertent spelling and grammatical errors are likely due to EHR/d ictation software use and do not reflect on the overall quality of patient care. Also, please note that the electronic time recorded on this note does not necessarily reflect the actual time of the patient encounter. Departure Diagnosis: Primary Impression: Hyperglycemia Additional Impressions: UTI (urinary tract infection) Urinary tract infection type: site unspecified Hematuria presence: with hematuria Qualified Codes: N39.0 - Urinary tract infection, site not specified; R31.9 - Hematuria, unspecified Cough Condition: Stable Patient Instructions: Hyperglycemia (High Blood Sugar), Understanding Urinary Tract Infections (UTIs) Additional Instructions: Call your primary care doctor TOMORROW for an appointment during the next 1-2 days.See the doctor sooner or return here if your condition worsens before your appointment time. MOE NGUYEN PA-C Nov 13, 2018 23:06
== END 2018-11-13 14:28 | disposition home or self-care (01) ==
LOC: FTE 09:43
DX: N39.0 Urinary tract infection, site not specified (principal); E11.65 Type 2 diabetes mellitus with hyperglycemia; I10 Essential (primary) hypertension; Z79.4 Long term (current) use of insulin
CPT/HCPCS: 36415; 71045; 80053; 81001; 82803; 82962; 85025; 87086; 96360; 96361; 96372; 99284; J1815; J7030

== ENCOUNTER 2018-11-17 20:57 | Emergency (ER) | payer MEDICARE, OTHER ==
[~2018-11-17] VITALS: Ht 152.4 cm; Wt 57.7 kg
[~2018-11-17 20:57] MED LIST changes: +BENZ-6 PO; +CIPR500T4 PO; +D-ME473S2 PO
[2018-11-17 21:21] VITALS: Ht 152.4 cm; Wt 57.7 kg
[2018-11-17] MEDS ORDERED: SOD CHLORIDE 0.9% 500 ML IV STA (23:29)
[2018-11-18 00:04] VITALS: BP 168/70; PULSE 75; RESP 14
--- NOTE | 2018-11-18 00:41 | ERD ---
ER Documentation Chief Complaint Chief Complaint pt c/o weakness and HTN HPI This is a 5-year-old female comes in today with complaints of elevated blood pressure and generalized weakness. She says her such as urgency and frequency of urination but no beto dysuria. Denies any focality of weakness. She notes that her blood pressure was elevated but denied any symptoms. Denies any nausea vomiting. Denies any chest pain. Denies any other current issues ROS All systems reviewed and are negative except as per history of present illness. Medications Home Meds Active Scripts Benzonatate* (Tessalon Perle*) 100 Mg Capsule, 100 MG PO Q8H PRN for COUGH, #20 CAP Prov:MOE NGUYEN PA-C 11/13/18 Dextromethorphan Hb-Promethazine Hcl* (Promethazine DM* Syrup) 473 Ml Syrup, 5 ML PO Q6 PRN for COUGH, #1 BOT Prov:MOE NGUYEN PA-C 11/13/18 Ciprofloxacin Hcl* (Ciprofloxacin Hcl*) 500 Mg Tablet, 500 MG PO BID for 10 Days, TAB Prov:MOE NGUYEN PA-C 11/13/18 Nitrofurantoin Monohyd Macrocr* (Macrobid*) 100 Mg Capsr, 100 MG PO BID for 7 Days, CAP Prov:KATIE CARRILLO DO 09/26/18 Valsartan* (Diovan*) 80 Mg Tablet, 80 MG PO DAILY, #30 TAB Prov:KATIE CARRILLO DO 09/26/18 Ibuprofen* (Motrin*) 400 Mg Tab, 400 MG PO Q6, #20 TAB Prov:BHAVIK RICE MD 08/22/18 Tramadol HCl (Tramadol HCl) 50 Mg Tablet, 50 MG PO Q4 PRN for PAIN, #15 TAB Prov:BHAVIK RICE MD 08/22/18 Reported Medications Ipratropium [place] (Ipratropium [place]) 30 Ml [place], 30 ML NS DAILY, SPRAY 05/20/18 Amitriptyline Hcl* (Amitriptyline Hcl*) 10 Mg Tablet, 10 MG PO QHS, #30 TAB 05/20/18 Omeprazole* (Omeprazole*) 20 Mg Capsule.dr, 20 MG PO BID, #60 CAP 05/20/18 Losartan Potassium* (Losartan Potassium*) 25 Mg Tablet, 25 MG PO DAILY, TAB 05/20/18 Metformin Hcl* (Metformin Hcl*) 500 Mg Tablet, 500 MG PO WITH BREAKFAST DINNE, #60 TAB 05/20/18 Metoprolol Tartrate* (Lopressor*) 50 Mg Tab, 50 MG PO BID, #60 TAB 05/20/18 Atorvastatin* (Atorvastatin*) 40 Mg Tablet, 40 MG PO QHS, #30 TAB 05/20/18 Glipizide* (Glipizide*) 10 Mg Tablet, 10 MG PO BID, TAB 02/09/18 Insulin Isophan/Regular (Humulin 70/30) 100 Units/Ml Susp, 40 UNIT SC BID, EA 02/09/18 Ergocalciferol (Vitamin D2) (VITAMIN D2) 50,000 Unit Capsule, 65493 UNIT PO WEEKLY, CAP 02/09/18 Gabapentin* (Gabapentin*) 300 Mg Capsule, 300 MG PO TID, #90 CAP 10/27/17 Allergies Allergies: Coded Allergies: morphine (Verified Allergy, Unknown, 05/20/18) n/v codeine (Verified Adverse Reaction, Mild, vomiting, 05/20/18) PMhx/Soc History of Surgery: No Anesthesia Reaction: No Hx Neurological Disorder: No Hx Respiratory Disorders: No Hx Cardiac Disorders: Yes (HTN) Hx Psychiatric Problems: No Hx Miscellaneous Medical Probl: Yes (DM) Hx Alcohol Use: No Hx Substance Use: No Hx Tobacco Use: No Smoking Status: Never smoker Physical Exam Vitals Vital Signs Date Temp Pulse Resp B/P (MAP) Pulse Ox O2 O2 Flow FiO2 Time Delivery Rate 11/18/18 98.2 75 14 168/70 94 Room Air 00:04 (102) 11/17/18 98.2 78 20 174/86 98 Room Air 23:10 (115) 11/17/18 98.2 79 20 172/71 98 21:21 (104) Physical Exam Const: No acute distress Head: Atraumatic Eyes: Normal Conjunctiva ENT: Normal External Ears, Nose and Mouth. Neck: Full range of motion. No meningismus. Resp: Clear to auscultation bilaterally Cardio: Regular rate and rhythm, no murmurs Abd: Soft, non tender, non distended. Normal bowel sounds Skin: No petechiae or rashes Back: No midline or flank tenderness Ext: No cyanosis, or edema Neur: Awake and alert Psych: Normal Mood and Affect Result Diagram: 11/17/18231911/17/182319 Results 24 hrs Laboratory Tests Test 11/17/18 21:20 11/17/18 23:20 Bedside Glucose 204 mg/dL White Blood Count 10.6 10^3/ul Red Blood Count 4.96 10^6/ul Hemoglobin 13.2 g/dl Hematocrit 39.3 % Mean Corpuscular Volume 79.2 fl Mean Corpuscular Hemoglobin 26.6 pg Mean Corpuscular Hemoglobin Concent 33.6 g/dl Red Cell Distribution Width 13.6 % Platelet Count 183 10^3/UL Mean Platelet Volume 11.8 fl Immature Granulocytes % 0.300 % Neutrophils % 54.8 % Lymphocytes % 34.6 % Monocytes % 5.8 % Eosinophils % 4.1 % Basophils % 0.4 % Nucleated Red Blood Cells % 0.0 /100WBC Immature Granulocytes # 0.030 10^3/ul Neutrophils # 5.8 10^3/ul Lymphocytes # 3.7 10^3/ul Monocytes # 0.6 10^3/ul Eosinophils # 0.4 10^3/ul Basophils # 0.0 10^3/ul Nucleated Red Blood Cells # 0.0 10^3/ul Urine Color YELLOW Urine Clarity CLEAR Urine pH 5.0 Urine Specific [place] 1.015 Urine Ketones NEGATIVE mg/dL Urine Nitrite NEGATIVE mg/dL Urine Bilirubin NEGATIVE mg/dL Urine Urobilinogen NEGATIVE mg/dL Urine Leukocyte Esterase NEGATIVE Brenda/ul Urine Microscopic RBC 1 /HPF Urine Microscopic WBC 3 /HPF Urine Hemoglobin NEGATIVE mg/dL Urine Glucose 3+ mg/dL Urine Total Protein 1+ mg/dl Sodium Level 140 mmol/L Potassium Level 3.9 mmol/L Chloride Level 99 mmol/L Carbon Dioxide Level 28 mmol/L Anion Gap 13 Blood Urea Nitrogen 19 mg/dl Creatinine 0.60 mg/dl Est Glomerular Filtrat Rate mL/min > 60 mL/min Glucose Level 225 mg/dl Calcium Level 9.8 mg/dl Total Bilirubin 0.3 mg/dl Direct Bilirubin 0.00 mg/dl Indirect Bilirubin 0.3 mg/dl Aspartate Amino Transf (AST/SGOT) 38 IU/L Alanine Aminotransferase (ALT/SGPT) 29 IU/L Alkaline Phosphatase 174 IU/L Troponin I < 0.012 ng/ml B-Type Natriuretic Peptide 693 PG/ML Total Protein 8.0 g/dl Albumin 4.4 g/dl Globulin 3.60 g/dl Albumin/Globulin Ratio 1.22 Current Medications Medications Dose Sig/Cuca Start Time Status Last (Trade) Ordered Route PRN Stop Time Admin Dose Reason Admin Sodium 500 ml @ Q1H STAT 11/17/18 DC 11/17/18 Chloride 500 mls/hr IV 23:29 23:50 11/18/18 00:28 Procedures/MDM Emergency department course: Patient seen by the charge nurse. Placed in bed from evaluation very pleasant continues ip attorney. Given of normal saline fluid bolus. Serial exams are stable. Diagnostic data: EKG: Rate/Rhythm: [Normal Sinus Rhythm] QRS, ST, T-waves: [No changes consistent w/ acute ischemia] Impression: [No evidence of ischemia or arrhythmia] Chest X-ray 1V Interpreted by me: Soft Tissue: No acute abnormalities Bones: No acute abnormalities Mediastinum/Cardiac Silhouette/Lungs: [No acute abnormalities] Medical decision making: This very pleasant patient has a generalized weakness. She has clinical complaints of UTI although her urine is currently negative. Urine cultures were sent off. She will be treated empirically with Keflex. She is to follow-up with her primary care physician for any worsening weakness or any worsening of symptoms and return immediately to the ER. Departure Diagnosis: Primary Impression: Acute weakness Additional Impression: UTI (urinary tract infection) Urinary tract infection type: site unspecified Hematuria presence: without hematuria Qualified Codes: N39.0 - Urinary tract infection, site not specified Condition: Stable BRUCE SALAZAR Nov 18, 2018 00:41
[2018-11-18] MEDS ORDERED: CEPH-443 PO (00:42)
== END 2018-11-18 01:37 | disposition home or self-care (01) ==
LOC: E/R 20:57
DX: N39.0 Urinary tract infection, site not specified (principal); I10 Essential (primary) hypertension; E11.9 Type 2 diabetes mellitus without complications; Z79.4 Long term (current) use of insulin
CPT/HCPCS: 36415; 71045; 80053; 81001; 82962; 83880; 84484; 85025; 87086; 93005; 99285; J7040

== ENCOUNTER 2019-03-08 18:09 | Emergency (ER) | payer MEDICARE, OTHER ==
[~2019-03-08] VITALS: Wt 59.8 kg
[~2019-03-08 18:09] MED LIST changes: +CEPH-443 PO
--- NOTE | 2019-03-08 19:43 | ERD ---
ER Documentation Chief Complaint Chief Complaint c/o htn/abdominal pain x 1 day HPI This is a 69-year-old female presents for evaluation of hypertension and abdominal pain. Patient states that she has been having epigastric pain on and off for the last day. She denies any chest pain or shortness of breath, describes symptoms as burning, they are intermittent and are not alleviated or aggravated by anything. ROS All systems reviewed and are negative except as per history of present illness. Medications Home Meds Active Scripts Cephalexin* (Keflex*) 500 Mg Capsule, 500 MG PO QID for 5 Days, CAP Prov:MINERVABRUCE ARCHULETA 11/18/18 Benzonatate* (Tessalon Perle*) 100 Mg Capsule, 100 MG PO Q8H PRN for COUGH, #20 CAP Prov:MOE NGUYEN PA-C 11/13/18 Dextromethorphan Hb-Promethazine Hcl* (Promethazine DM* Syrup) 473 Ml Syrup, 5 M L PO Q6 PRN for COUGH, #1 BOT Prov:MOE NGUYEN PA-C 11/13/18 Ciprofloxacin Hcl* (Ciprofloxacin Hcl*) 500 Mg Tablet, 500 MG PO BID for 10 Days, TAB Prov:MOE NGUYEN PA-C 11/13/18 Nitrofurantoin Monohyd Macrocr* (Macrobid*) 100 Mg Capsr, 100 MG PO BID for 7 Days, CAP Prov:KATIE CARRILLO DO 09/26/18 Valsartan* (Diovan*) 80 Mg Tablet, 80 MG PO DAILY, #30 TAB Prov:KATIE CARRILLO DO 09/26/18 Ibuprofen* (Motrin*) 400 Mg Tab, 400 MG PO Q6, #20 TAB Prov:BHAVIK RICE MD 08/22/18 Tramadol HCl (Tramadol HCl) 50 Mg Tablet, 50 MG PO Q4 PRN for PAIN, #15 TAB Prov:BHAVIK RICE MD 08/22/18 Reported Medications Ipratropium [place] (Ipratropium [place]) 30 Ml [place], 30 ML NS DAILY, SPRAY 05/20/18 Amitriptyline Hcl* (Amitriptyline Hcl*) 10 Mg Tablet, 10 MG PO QHS, #30 TAB 05/20/18 Omeprazole* (Omeprazole*) 20 Mg Capsule.dr, 20 MG PO BID, #60 CAP 05/20/18 Losartan Potassium* (Losartan Potassium*) 25 Mg Tablet, 25 MG PO DAILY, TAB 05/20/18 Metformin Hcl* (Metformin Hcl*) 500 Mg Tablet, 500 MG PO WITH BREAKFAST DINNE, #60 TAB 05/20/18 Metoprolol Tartrate* (Lopressor*) 50 Mg Tab, 50 MG PO BID, #60 TAB 05/20/18 Atorvastatin* (Atorvastatin*) 40 Mg Tablet, 40 MG PO QHS, #30 TAB 05/20/18 Glipizide* (Glipizide*) 10 Mg Tablet, 10 MG PO BID, TAB 02/09/18 Insulin Isophan/Regular (Humulin 70/30) 100 Units/Ml Susp, 40 UNIT SC BID, EA 02/09/18 Ergocalciferol (Vitamin D2) (VITAMIN D2) 50,000 Unit Capsule, 11044 UNIT PO WEEKLY, CAP 02/09/18 Gabapentin* (Gabapentin*) 300 Mg Capsule, 300 MG PO TID, #90 CAP 10/27/17 Allergies Allergies: Coded Allergies: morphine (Verified Allergy, Unknown, 05/20/18) n/v codeine (Verified Adverse Reaction, Mild, vomiting, 05/20/18) PMhx/Soc History of Surgery: No Anesthesia Reaction: No Hx Neurological Disorder: No Hx Respiratory Disorders: No Hx Cardiac Disorders: Yes (HTN) Hx Psychiatric Problems: No Hx Miscellaneous Medical Probl: Yes (DM) Hx Alcohol Use: No Hx Substance Use: No Hx Tobacco Use: No FmHx Family History: diabetes Physical Exam Vitals Vital Signs Date Temp Pulse Resp B/P (MAP) Pulse Ox O2 O2 Flow FiO2 Time Delivery Rate 03/08/19 75 16 172/67 95 Room Air 22:16 (102) 03/08/19 70 15 158/82 95 Room Air 21:17 (107) 03/08/19 98.2 83 18 150/69 98 18:31 (96) Physical Exam Const: No acute distress Head: Atraumatic Eyes: Normal Conjunctiva ENT: Normal External Ears, Nose and Mouth. Neck: Full range of motion. No meningismus. Resp: Clear to auscultation bilaterally Cardio: Regular rate and rhythm, no murmurs Abd: Soft, non tender, non distended, no rebound or guarding. Normal bowel sounds Skin: No petechiae or rashes Back: No midline or flank tenderness Ext: No cyanosis, or edema Neur: Awake and alert Psych: Normal Mood and Affect Result Diagram: 03/08/19192403/08/191924 Results 24 hrs Laboratory Tests Test 03/08/19 19:25 White Blood Count 8.0 10^3/ul Red Blood Count 4.62 10^6/ul Hemoglobin 12.6 g/dl Hematocrit 36.6 % Mean Corpuscular Volume 79.2 fl Mean Corpuscular Hemoglobin 27.3 pg Mean Corpuscular Hemoglobin Concent 34.4 g/dl Red Cell Distribution Width 13.2 % Platelet Count 166 10^3/UL Mean Platelet Volume 11.8 fl Immature Granulocytes % 0.100 % Neutrophils % 54.6 % Lymphocytes % 36.8 % Monocytes % 4.6 % Eosinophils % 3.5 % Basophils % 0.4 % Nucleated Red Blood Cells % 0.0 /100WBC Immature Granulocytes # 0.010 10^3/ul Neutrophils # 4.4 10^3/ul Lymphocytes # 3.0 10^3/ul Monocytes # 0.4 10^3/ul Eosinophils # 0.3 10^3/ul Basophils # 0.0 10^3/ul Nucleated Red Blood Cells # 0.0 10^3/ul Urine Color YELLOW Urine Clarity CLEAR Urine pH 8.0 Urine Specific [place] 1.010 Urine Ketones NEGATIVE mg/dL Urine Nitrite NEGATIVE mg/dL Urine Bilirubin NEGATIVE mg/dL Urine Urobilinogen NEGATIVE mg/dL Urine Leukocyte Esterase NEGATIVE Brenda/ul Urine Hemoglobin NEGATIVE mg/dL Urine Glucose 2+ mg/dL Urine Total Protein NEGATIVE mg/dl Sodium Level 140 mmol/L Potassium Level 4.2 mmol/L Chloride Level 102 mmol/L Carbon Dioxide Level 33 mmol/L Anion Gap 5 Blood Urea Nitrogen 14 mg/dl Creatinine 0.85 mg/dl Est Glomerular Filtrat Rate mL/min mL/min Glucose Level 183 mg/dl Calcium Level 9.5 mg/dl Total Bilirubin 0.5 mg/dl Direct Bilirubin 0.00 mg/dl Indirect Bilirubin 0.5 mg/dl Aspartate Amino Transf (AST/SGOT) 33 IU/L Alanine Aminotransferase (ALT/SGPT) 33 IU/L Alkaline Phosphatase 137 IU/L Troponin I < 0.012 ng/ml Total Protein 7.3 g/dl Albumin 3.9 g/dl Globulin 3.40 g/dl Albumin/Globulin Ratio 1.14 Lipase 141 U/L Procedures/MDM This is a 69-year-old female presents for evaluation of intermittent abdominal pain. Patient has no peritoneal signs on abdominal exam, she is well-appearing nontoxic, consider possible gastritis, however given her age, intra-abdominal pathology, should be ruled out, labs were ordered, CT abdomen pelvis, as well as cardiac work-up for anginal equivalent although suspicion lower for this. EKG: Rate/Rhythm: Normal Sinus Rhythm QRS, ST, T-waves: No changes consistent w/ acute ischemia Impression: No evidence of ischemia or arrhythmia 10:24 PM: Patient's abdominal pain has improved, her labs were overall unremarkable, currently pending is her CT abdomen pelvis, if this is negative, she can likely be discharged home. Signed out to the night doctor. Departure Diagnosis: Primary Impression: Hypertension Hypertension type: unspecified Qualified Codes: I10 - Essential (primary) hypertension Additional Impression: Abdominal pain Abdominal location: unspecified location Qualified Codes: R10.9 - Un specified abdominal pain Condition: Stable Patient Instructions: Abdominal Pain KATHERINE BELCHER MD Mar 08, 2019 19:43
[2019-03-08] MEDS ORDERED: FAMO-96 PO (22:26)
[2019-03-08] MEDS ORDERED: LANT3I SC (23:07)
[2019-03-08 23:16] VITALS: BP 170/87; PULSE 76; RESP 17
== END 2019-03-08 23:36 | disposition home or self-care (01) ==
LOC: E/R 18:09
DX: I10 Essential (primary) hypertension (principal); E11.9 Type 2 diabetes mellitus without complications; Z79.4 Long term (current) use of insulin; Z79.84 Long term (current) use of oral hypoglycemic drugs
CPT/HCPCS: 36415; 71045; 74176; 80053; 81003; 83690; 84484; 85025; 93005

== ENCOUNTER 2019-03-15 22:11 | Emergency (ER) | payer MEDICARE, OTHER ==
[~2019-03-15] VITALS: Ht 149.9 cm; Wt 59.6 kg
[~2019-03-15 22:11] MED LIST changes: -AMIT10TA6 PO; -ATOR40TA68 PO; -BENZ-6 PO; -CEPH-443 PO; -CIPR500T4 PO; -D-ME473S2 PO; -ERGO500013 PO; +FAMO-96 PO; -GABA300C16 PO; -IPRA30SP NS; +LANT3I SC; -METO-429 PO; -NITR-58 PO; -NOVO7030 SC; -OMEP20CA16 PO; -TRAM50TA2 PO; -VALS80TA2 PO
[2019-03-15 22:22] VITALS: Ht 149.9 cm; Wt 59.6 kg
[2019-03-15] MEDS ORDERED: SOD CHLORIDE 0.9% 600 ML IV ONE (22:30)
--- NOTE | 2019-03-16 00:21 | ERD ---
ER Documentation Chief Complaint Chief Complaint DIZZINESS; BLOOD GLUCOSE IN TRIAGE 565 HPI This very pleasant 69-year female, no dizziness smokeless is been elevated for the past few days. Patient admits to not keeping her diet. She does take her insulin regularly. She denies any polyuria or polydipsia or polyphagia. Denies any fevers chills. Denies any other current complaints. ROS All systems reviewed and are negative except as per history of present illness. Medications Home Meds Active Scripts Famotidine* (Pepcid*) 20 Mg Tablet, 20 MG PO BID for 10 Days, TAB Prov:KATHERINE BELCHER MD 03/08/19 Ibuprofen* (Motrin*) 400 Mg Tab, 400 MG PO Q6, #20 TAB Prov:BHAVIK RICE MD 08/22/18 Reported Medications Insulin Glargine* (Lantus*) 100 Unit/Ml Soln, 28 UNIT SC QHS, #1 VIAL 03/08/19 Losartan Potassium* (Losartan Potassium*) 25 Mg Tablet, 25 MG PO DAILY, TAB 05/20/18 Metformin Hcl* (Metformin Hcl*) 500 Mg Tablet, 500 MG PO WITH BREAKFAST DINNE, #60 TAB 05/20/18 Glipizide* (Glipizide*) 10 Mg Tablet, 10 MG PO BID, TAB 02/09/18 Allergies Allergies: Coded Allergies: morphine (Verified Allergy, Unknown, 03/08/19) n/v codeine (Verified Adverse Reaction, Mild, vomiting, 03/08/19) PMhx/Soc History of Surgery: No Anesthesia Reaction: No Hx Neurological Disorder: No Hx Respiratory Disorders: No Hx Cardiac Disorders: Yes (HTN) Hx Psychiatric Problems: No Hx Miscellaneous Medical Probl: Yes (OSTEOARTHRITIS) Hx Alcohol Use: No Hx Substance Use: No Hx Tobacco Use: No Smoking Status: Never smoker Physical Exam Vitals Vital Signs Date Temp Pulse Resp B/P (MAP) Pulse Ox O2 O2 Flow FiO2 Time Delivery Rate 03/15/19 77 18 176/86 99 Room Air 23:30 (116) 03/15/19 77 18 175/74 98 Room Air 22:51 (107) 03/15/19 97.3 80 18 159/67 97 22:22 (97) Physical Exam Const: No acute distress Head: Atraumatic Eyes: Normal Conjunctiva ENT: Normal External Ears, Nose and Mouth. Neck: Full range of motion. No meningismus. Resp: Clear to auscultation bilaterally Cardio: Regular rate and rhythm, no murmurs Abd: Soft, non tender, non distended. Normal bowel sounds Skin: No petechiae or rashes Back: No midline or flank tenderness Ext: No cyanosis, or edema Neur: Awake and alert Psych: Normal Mood and Affect Result Diagram: 03/15/19 2245 03/15/19 2245 Results 24 hrs Laboratory Tests Test 03/15/19 22:21 03/15/19 22:28 03/15/19 22:43 03/15/19 22:45 Bedside Glucose 565 mg/dL Blood Gas Blood venous Specimen Source Arterial Blood 03/15/2019 11:00 Date Drawn :26 PM Arterial Blood VENOUS LINE Gas Puncture Site Star Test N/A Venous Blood pH 7.304 Venous Blood 55.6 mmHG pCO2 (Temp Corrected ) Venous Blood 32.9 mmHG pO2 (Temp Corrected ) Venous Blood 27.0 mmol/L HCO3 Venous Blood 57.2 mmHG Oxygen Saturation Venous Blood -0.4 mmol/L Base Excess Venous Blood 13.8 g/dl Total Hemoglobin Venous Blood 55.9 % Oxyhemoglobin Venous Blood 0.3 % Methemoglobin Carboxyhemoglob 1.9 % in Blood Gas 37.0 C Temperature Blood Gas ROOM AIR Modality FiO2 21.0 % Blood Gas Notified Whom Blood Gas 03/15/2019 11:10 Notified Time :12 PM Urine Color STRAW Urine Clarity CLEAR Urine pH 6.0 Urine Specific 1.020 [place] Urine Ketones NEGATIVE mg/dL Urine Nitrite NEGATIVE mg/dL Urine Bilirubin NEGATIVE mg/dL Urine NEGATIVE mg/dL Urobilinogen Urine Leukocyte TRACE Brenda/ul Esterase Urine 1 /HPF Microscopic RBC Urine 1 /HPF Microscopic WBC Urine Squamous FEW /HPF Epithelial Cell s Urine NEGATIVE mg/dL Hemoglobin Urine Glucose 3+ mg/dL Urine Total NEGATIVE mg/dl Protein White Blood 7.7 10^3/ul Count Red Blood Count 4.56 10^6/ul Hemoglobin 12.4 g/dl Hematocrit 36.3 % Mean 79.6 fl Corpuscular Volume Mean 27.2 pg Corpuscular Hemoglobin Mean 34.2 g/dl Corpuscular Hemoglobin Conc ent Red Cell 13.0 % Distribution Width Platelet Count 179 10^3/UL Mean Platelet 12.0 fl Volume Immature 0.500 % Granulocytes % Neutrophils % 58.4 % Lymphocytes % 31.8 % Monocytes % 5.7 % Eosinophils % 3.2 % Basophils % 0.4 % Nucleated Red 0.0 /100WBC Blood Cells % Immature 0.040 10^3/ul Granulocytes # Neutrophils # 4.5 10^3/ul Lymphocytes # 2.5 10^3/ul Monocytes # 0.4 10^3/ul Eosinophils # 0.3 10^3/ul Basophils # 0.0 10^3/ul Nucleated Red 0.0 10^3/ul Blood Cells # Sodium Level 138 mmol/L Potassium Level 4.7 mmol/L Chloride Level 101 mmol/L Carbon Dioxide 26 mmol/L Level Anion Gap 11 Blood Urea 18 mg/dl Nitrogen Creatinine 0.69 mg/dl Est Glomerular mL/min Filtrat Rate mL/min Glucose Level 638 mg/dl Calcium Level 9.3 mg/dl Phosphorus 4.5 mg/dl Level Magnesium Level 1.7 mg/dl Current Medications Medications Dose Sig/Cuca Start Time Status Last (Trade) Ordered Route PRN Stop Time Admin Dose Reason Admin Sodium 600 ml @ ONCE ONCE 03/15/19 DC 03/15/19 Chloride 600 mls/hr IV 22:30 22:50 03/15/19 23:29 Insulin 10 unit ONCE ONCE 03/16/19 Human SC 00:30 Regular 03/16/19 00:31 (Humulin R) Procedures/MDM Medical decision make: 69-year-old female here with hyperglycemia but no evidence of diabetic ketoacidosis. Given nutrition counseling. Advised follow- up with PMD. Treated with fluids and intravenous venous insulin here Departure Diagnosis: Primary Impression: Hyperglycemia Condition: Stable BRUCE SALAZAR Mar 16, 2019 00:21
[2019-03-16] MEDS ORDERED: INSULIN REGULAR, HUMAN 100 UNIT/1 ML 3ML VIAL SC ONE (00:30)
[2019-03-16 00:45] VITALS: BP 174/72; PULSE 77; RESP 16
== END 2019-03-16 01:04 | disposition home or self-care (01) ==
LOC: E/R 22:11
DX: E11.65 Type 2 diabetes mellitus with hyperglycemia (principal); I10 Essential (primary) hypertension; Z79.4 Long term (current) use of insulin
CPT/HCPCS: 36415; 80048; 81001; 82803; 82962; 83735; 84100; 85025; 96372; 99284; J1815; J7030

== ENCOUNTER 2019-03-29 12:01 | Emergency (ER) | payer MEDICARE, OTHER ==
[~2019-03-29] VITALS: Ht 149.9 cm; Wt 57.3 kg
[2019-03-29 12:15] VITALS: BP 119/58; PULSE 84; RESP 16; Ht 149.9 cm; Wt 57.3 kg
--- NOTE | 2019-03-29 12:29 | EN ---
Date/Time of Note Date/Time of Note DATE: 03/29/19 TIME: 12:28 ER Progress Note MSE-patient presents with a 1 day history of body aches she also has runny nose. Patient has a history of diabetes and hypertension. Denies shortness of breath, chest pain although feels it is too hot out and was feeling ill from the heat. Accu-Chek 333. ED 2 appropriate for urine and symptomatic treatment and eval for complications of diabetes/heat BHAVIK RICE MD Mar 29, 2019 12:29
[2019-03-29] MEDS ORDERED: SOD CHLORIDE 0.9% 1,000 ML IV STA (13:14)
[2019-03-29] MEDS ORDERED: ACETAMINOPHEN 325 MG TAB PO ONE (13:30)
[2019-03-29] MEDS ORDERED: ACET325T33 PO (14:38)
[2019-03-29] MEDS ORDERED: PSEU-79 PO (14:38)
--- NOTE | 2019-03-29 15:39 | ERD ---
ER Documentation Chief Complaint Chief Complaint runny nose, cough, body aches x1d. no meds taken HPI 69-year-old female presenting with a runny nose and cough with body aches x1 day. Patient has had no fever. Vomiting and abdominal pain. She is a history of diabetes on insulin and metformin. Hypertension. Surgical history denies. Social history denies. Allergic to morphine and codeine. ROS All systems reviewed and are negative except as per history of present illness. Medications Home Meds Active Scripts Pseudoephedrine Hcl* (Suphedrin*) 30 Mg Tablet, 30 MG PO Q6 PRN for CONGESTION, #30 TAB Prov:BLAKE SUERO PA-C 03/29/19 Acetaminophen* (Tylenol*) 325 Mg Tablet, 2 TAB PO Q6 PRN for PAIN AND OR ELEVATED TEMP, #20 TAB Prov:BLAKE SUERO PA-C 03/29/19 Famotidine* (Pepcid*) 20 Mg Tablet, 20 MG PO BID for 10 Days, TAB Prov:KATHERINE BELCHER MD 03/08/19 Ibuprofen* (Motrin*) 400 Mg Tab, 400 MG PO Q6, #20 TAB Prov:BHAVIK RICE MD 08/22/18 Reported Medications Insulin Glargine* (Lantus*) 100 Unit/Ml Soln, 28 UNIT SC QHS, #1 VIAL 03/08/19 Losartan Potassium* (Losartan Potassium*) 25 Mg Tablet, 25 MG PO DAILY, TAB 05/20/18 Metformin Hcl* (Metformin Hcl*) 500 Mg Tablet, 500 MG PO WITH BREAKFAST DINNE, #60 TAB 05/20/18 Glipizide* (Glipizide*) 10 Mg Tablet, 10 MG PO BID, TAB 02/09/18 Allergies Allergies: Coded Allergies: morphine (Verified Allergy, Unknown, 03/29/19) n/v codeine (Verified Adverse Reaction, Mild, vomiting, 03/29/19) PMhx/Soc History of Surgery: No Anesthesia Reaction: No Hx Neurological Disorder: No Hx Respiratory Disorders: No Hx Cardiac Disorders: Yes (HTN) Hx Psychiatric Problems: No Hx Miscellaneous Medical Probl: Yes (OSTEOARTHRITIS) Hx Alcohol Use: No Hx Substance Use: No Hx Tobacco Use: No Smoking Status: Never smoker FmHx Family History: No diabetes, No coronary disease, No other Physical Exam Vitals Vital Signs Date Temp Pulse Resp B/P (MAP) Pulse Ox O2 O2 Flow FiO2 Time Delivery Rate 03/29/19 97.6 84 16 119/58 96 12:15 (78) Physical Exam GENERAL: The patient is well-appearing, well-nourished, in no acute distress HEENT: Atraumatic. Conjunctivae are pink. Pupils equal, round, and reactive to light. There is no scleral icterus. Tympanic membranes clear bilaterally. Oropharynx clear. NECK: C-spine is soft and supple. There is no meningismus. There is no cervical lymphadenopathy. CHEST: Clear to auscultation bilaterally. There are no rales, wheezes or rhonchi. HEART: Regular rate and rhythm. No murmurs, clicks, rubs or gallops. Results 24 hrs Laboratory Tests Test 03/29/19 12:26 03/29/19 13:28 03/29/19 14:35 Bedside Glucose 333 mg/dL 327 mg/dL 246 mg/dL Current Medications Medications Dose Sig/Cuca Start Time Status Last (Trade) Ordered Route PRN Stop Time Admin Dose Reason Admin Sodium 1,000 ml @ Q1H STAT 03/29/19 DC 03/29/19 Chloride 1,000 mls/hr IV 13:14 13:35 03/29/19 14:13 650 mg ONCE ONCE 03/29/19 DC 03/29/19 Acetaminophen PO 13:30 13:35 (Tylenol 03/29/19 13:31 Tab) Procedures/MDM Course: Sugars 333. 1 L normal saline given in ED and sugar dropped down to 246. She is stable at at reevaluation. MDM: 69-year-old female presenting with URI type symptoms. I have low suspicion for pneumonia and I do not feel blood work or imaging is indicated. Patient's discharged with strict ER precautions. All questions answered at discharge Departure Diagnosis: Primary Impression: Upper respiratory infection Condition: Stable Patient Instructions: Uri, Viral, No Abx (Adult) Referrals: HANNA SPAIN MD (PCP) Additional Instructions: FOLLOW UP WITH YOUR PRIMARY CARE PHYSICIAN TOMORROW.Return to this facility if you are not improving as expected. BLAKE USERO PA-C Mar 29, 2019 15:39
== END 2019-03-29 14:55 | disposition home or self-care (01) ==
LOC: FTE 12:01
DX: J06.9 Acute upper respiratory infection, unspecified (principal); I10 Essential (primary) hypertension; E11.9 Type 2 diabetes mellitus without complications; Z79.4 Long term (current) use of insulin
CPT/HCPCS: 82962; 99284; J7030

== ENCOUNTER 2019-07-06 22:56 | Emergency (ER) | payer MEDICARE, OTHER ==
[~2019-07-06] VITALS: Ht 152.4 cm; Wt 61.0 kg
[~2019-07-06 22:56] MED LIST changes: +BENZ-6 PO; +CEPH-443 PO; +CIPR-193 PO; +DOCU-144 PO; +ERGO500013 PO; -FAMO-96 PO; +IBUP-1542 PO; -IBUP-1561 PO; -LANT3I SC; +LORA1TAB PO; -LOSA25TA12 PO; +LOSA50TA14 PO; -METF500T24 PO; +METO-429 PO; +MTF1000T PO; +MUPI22OI2 TOP; +NAPR-985 PO; +ONDA4TAB8 PO; +PANT40TA3 PO; +SERT100T PO; +SULF1TAB31 PO
[2019-07-06 23:03] VITALS: Ht 152.4 cm; Wt 61.0 kg
[2019-07-07] MEDS ORDERED: SOD CHLORIDE 0.9% 1,000 ML IV STA (00:58)
[2019-07-07] MEDS ORDERED: KETOROLAC 15 MG INJ IV STA (00:58)
[2019-07-07] MEDS ORDERED: ONDANSETRON 4 MG INJ IV STA (00:58)
[2019-07-07] MEDS ORDERED: AL HYDROX/MG HYDROX/SIMETH 30 ML CUP PO ONE (01:00)
[2019-07-07] MEDS ORDERED: LIDOCAINE 2% VISC 10 ML CUP PO ONE (01:00)
[2019-07-07] MEDS ORDERED: CEFTRIAXONE 1 GM INJ IM ONE (03:00)
[2019-07-07 04:21] VITALS: BP 152/78; PULSE 74; RESP 16
== END 2019-07-07 04:21 | disposition home or self-care (01) ==
LOC: E/R 22:56
DX: R10.84 Generalized abdominal pain (principal); E11.9 Type 2 diabetes mellitus without complications; I10 Essential (primary) hypertension; J06.9 Acute upper respiratory infection, unspecified; E86.0 Dehydration; R11.0 Nausea; Z79.84 Long term (current) use of oral hypoglycemic drugs
CPT/HCPCS: 36415; 80053; 81001; 82962; 83690; 84484; 85025; 93005; 96374; 96375; 99284; J0696; J1885; J2405; J7030